=== PATIENT | female | born 1945 | race Caucasian/White ===

== ENCOUNTER 2018-11-27 09:30 | Outpatient (RCR) | payer MEDICARE, OTHER, SELFPAY ==
[2018-11-06 11:34] VITALS: BP 129/70; PULSE 97; RESP 18; TEMP 37.1; BMI 30.8
--- NOTE | 2018-11-06 13:18 | PCM.WC.HP ---
(1) Non-healing surgical wound Status: Chronic Current Visit: Yes Code(s): T81.89XA - Other complications of procedures, not elsewhere classified, initial encounter (2) Skin cancer of forehead Status: Chronic Current Visit: Yes Code(s): C44.309 - Unspecified malignant neoplasm of skin of other parts of face (3) Type 2 diabetes mellitus Status: Chronic Current Visit: Yes Code(s): E11.9 - Type 2 diabetes mellitus without complications History of Present Illness Chief Complaint: Nonhealing surgical wound. History of Wound: Ms. Zarate is a 72-year-old who presented to the wound center due to nonhealing postsurgical wound. On 02 October 2018, she had surgery to remove skin cancer on her left forehead. However, she is not achieved wound healing since surgery. Initially been managed by her property damage claims adjustor, she was referred here for continued care. She denies any concerns. Denies drainage from the site. Feels well otherwise. She states that her blood sugars are well controlled. Past Medical History Past Medical History: Chronic Problems Non-healing surgical wound (Chronic) Skin cancer of forehead (Chronic) Type 2 diabetes mellitus (Chronic) Smoking Status: Former smoker Review of Systems Constitutional: Denies: Anorexia, Chills, Night Sweats Eyes: Denies: Blurred vision HEENT: Reports: Difficulty Swallowing. Denies: Difficulty Hearing Cardiovascular: Denies: Chest Pain, Chest Tightness Respiratory: Denies: Cough, Hemoptysis Gastrointestinal: Reports: Nausea. Denies: Abdominal Pain, Hematemesis, Vomiting Skin: Denies: Jaundice - Physical Exam Vital Signs Temp Pulse Resp BP 98.7 F 97 18 129/70 H 11/06/18 11:34 11/06/18 11:34 11/06/18 11:34 11/06/18 11:34 General: Alert, Oriented x3, Cooperative, No apparent distress HEENT: Atraumatic, Normocephalic Oral: Moist Mucosa Neck: Supple Lungs: Normal air movement Cardiovascular: Regular rate, Regular Rhythm, Normal S1, Normal S2 Abdomen: Non Tender Extremities: No cyanosis Skin: Ulcer/ Wound Wound Measurements and Assessment WC - Nurse 1 - General Ulcer Measurement Start: 11/06/18 11:33 Freq: Status: Active Protocol: Activity Type Activity Date Activity User E-Sign Co-Sign Detail Recorded Client Recorded Date Recorded By Document 11/06/18 11:34 AN [id number] 11/06/18 11:57 AN 11/06/18 11:34 Wound Center Nurse 1 [Ulcer Assessment] #1 LEFT FOREHEAD -Combined with other wound No -Current Size (cm) - Length 1.8 -Current Size (cm) - Width 1.2 -Current Size (cm) - Depth 0.3 -Total Square Cm 2.16 -Date of Last Picture (Recall this 11/06/18 field) -Photo Taken Yes -Epithelialization None Present -Tunneling No -Undermining/Tunneling Yes -Undermining/Tunneling Starts (O' 10 clock) -Undermining/Tunneling Ends (O'clock) 2 -Maximum Distance (cm) 0.3 -Classification - Thickness Full Thickness without Exposed Support Structure -Exudate Amt Medium -Exudate Type Serosanguineous -Wound Margin Distinct, Outline Attached -Granulation Amt Small (1-33%) -Granulation Quality Red -Slough/Fibrin Yes -Necrosis Amt Large (67-100%) -Necrotic Tissue Type Eschar -Structure Exposed None/Limited to Skin Breakdown -Texture (Elizabeth-wound Skin Appearance) Assessed Callus -Moisture (Elizabeth-wound Skin Appearance Assessed ) -Color (Elizabeth-wound Skin Appearance) Assessed Erythema -Temperature (Elizabeth-wound Skin No Abnormality Appearance) (Pt Warm) -Tenderness on Palpation (Elizabeth-wound No Skin Appearance) -Ulcer Cleansing Rinsed/ Irrigated with Saline -Foul Odor after Cleansing No -Anesthetic Used 4% Lidocaine Solution WC - Nurse 2 - General Ulcer CM Notes Start: 11/06/18 11:33 Freq: Status: Active Protocol: Activity Type Activity Date Activity User E-Sign Co-Sign Detail Recorded Client Recorded Date Recorded By Document 11/06/18 12:19 MW [id number] 11/06/18 12:24 MW 11/06/18 12:19 Wound Center Nurse 2 [Procedure/Treatment] -Time 12:20 -Correct Patient Yes -Correct Side, Site, Position Yes -Correct Procedure Yes -Procedure Performed Yes -Type of Procedure Debridement -Clinical Debridement Subcutaneous -Post Debridement Size (cm) - Length 2.2 -Post Debridement Size (cm) - Width 1.5 -Post Debridement Size (cm) - Depth 0.4 -Total Square Cm 3.30 -Wound/Ulcer Outcome Not Healed -Ulcer Cleansing Rinsed/ Irrigated with Saline -Foul Odor after Cleansing No -Bioengineered Tissue No -Bleeding Controlled with Pressure -Offloading No -Treatment Response Procedure Tolerated Well [See Physician Procedure note for Specifics] Pain Scale: 0-10 Numeric [Pain] -Is Patient Pain Free? Yes Musculoskeletal: No Muscle Wasting Neurological: Cranial nerves II-XII grossly intact Psych/Mental Status: Normal Affect Debridement Note Post-Debridement Measurements/Treatment WC - Nurse 2 - General Ulcer CM Notes Start: 11/06/18 11:33 Freq: Status: Active Protocol: Activity Type Activity Date Activity User E-Sign Co-Sign Detail Recorded Client Recorded Date Recorded By Document 11/06/18 12:19 MW [id number] 11/06/18 12:24 MW 11/06/18 12:19 Wound Center Nurse 2 #1 LEFT FOREHEAD -Time 12:20 -Correct Patient Yes -Correct Side, Site, Position Yes -Correct Procedure Yes -Procedure Performed Yes -Type of Procedure Debridement -Clinical Debridement Subcutaneous -Post Debridement Size (cm) - Length 2.2 -Post Debridement Size (cm) - Width 1.5 -Post Debridement Size (cm) - Depth 0.4 -Total Square Cm 3.30 -Wound/Ulcer Outcome Not Healed -Ulcer Cleansing Rinsed/ Irrigated with Saline -Foul Odor after Cleansing No -Bioengineered Tissue No -Bleeding Controlled with Pressure -Offloading No -Treatment Response Procedure Tolerated Well Pain Scale: 0-10 Numeric Is Patient Pain Free? Yes Wound debrided: Left forehead Wound Grade/Stage: Stage III Type of Debridement: Excisional debridement Anesthesia Used: 4% Lidocaine Solution Depth: Down to and including healthy tissue, in the subcutaneous layer Percentage of wound debrided: 100 Instrument Used: 3mm curette Tissue Removed: Slough and devitalized tissue Severity: Fat Layer Exposed Amount of bleeding with debridement: Mild Bleeding Controlled with: Pressure Patient tolerated procedure well Assessment/Plan Active Problems Non-healing surgical wound (Chronic) Skin cancer of forehead (Chronic) Type 2 diabetes mellitus (Chronic) Assessment: Same as above. Plan: Debridement done as documented above. Procedure was well-tolerated. I believe patient might require flap closure. Some areas with exposed bone without any tissue. Referred to plastic surgery. Aquacel extra with Adaptic over top. Change daily. Optimal blood sugar control. Increased protein intake. We will request records from prior physician. Her questions were answered and she was asked to call with any further questions or concerns. Follow-up in 1 week. This note was generated with [employer] dictation software. It may contain incorrect words, spelling, and punctuation that were not noted in checking the note before signing.
--- NOTE | 2018-11-06 13:22 | HP.PCM_ITS ---
(1) Non-healing surgical wound Status: Chronic Current Visit: Yes Code(s): T81.89XA - Other complications of procedures, not elsewhere classified, initial encounter (2) Skin cancer of forehead Status: Chronic Current Visit: Yes Code(s): C44.309 - Unspecified malignant neoplasm of skin of other parts of face (3) Type 2 diabetes mellitus Status: Chronic Current Visit: Yes Code(s): E11.9 - Type 2 diabetes mellitus without complications History of Present Illness Chief Complaint: Nonhealing surgical wound. History of Wound: Ms. Zarate is a 72-year-old who presented to the wound center due to nonhealing postsurgical wound. On 02 October 2018, she had surgery to remove skin cancer on her left forehead. However, she is not achieved wound healing since surgery. Initially been managed by her fire warden, she was referred here for continued care. She denies any concerns. Denies drainage from the site. Feels well otherwise. She states that her blood sugars are well controlled. Past Medical History Past Medical History: Chronic Problems Non-healing surgical wound (Chronic) Skin cancer of forehead (Chronic) Type 2 diabetes mellitus (Chronic) Smoking Status: Former smoker Review of Systems Constitutional: Denies: Anorexia, Chills, Night Sweats Eyes: Denies: Blurred vision HEENT: Reports: Difficulty Swallowing. Denies: Difficulty Hearing Cardiovascular: Denies: Chest Pain, Chest Tightness Respiratory: Denies: Cough, Hemoptysis Gastrointestinal: Reports: Nausea. Denies: Abdominal Pain, Hematemesis, Vomiting Skin: Denies: Jaundice - Physical Exam Vital Signs Temp Pulse Resp BP 98.7 F 97 18 129/70 H 11/06/18 11:34 11/06/18 11:34 11/06/18 11:34 11/06/18 11:34 General: Alert, Oriented x3, Cooperative, No apparent distress HEENT: Atraumatic, Normocephalic Oral: Moist Mucosa Neck: Supple Lungs: Normal air movement Cardiovascular: Regular rate, Regular Rhythm, Normal S1, Normal S2 Abdomen: Non Tender Extremities: No cyanosis Skin: Ulcer/ Wound Wound Measurements and Assessment WC - Nurse 1 - General Ulcer Measurement Start: 11/06/18 11:33 Freq: Status: Active Protocol: Activity Type Activity Date Activity User E-Sign Co-Sign Detail Recorded Client Recorded Date Recorded By Document 11/06/18 11:34 AN [id number] 11/06/18 11:57 AN 11/06/18 11:34 Wound Center Nurse 1 [Ulcer Assessment] #1 LEFT FOREHEAD -Combined with other wound No -Current Size (cm) - Length 1.8 -Current Size (cm) - Width 1.2 -Current Size (cm) - Depth 0.3 -Total Square Cm 2.16 -Date of Last Picture (Recall this 11/06/18 field) -Photo Taken Yes -Epithelialization None Present -Tunneling No -Undermining/Tunneling Yes -Undermining/Tunneling Starts (O' 10 clock) -Undermining/Tunneling Ends (O'clock) 2 -Maximum Distance (cm) 0.3 -Classification - Thickness Full Thickness without Exposed Support Structure -Exudate Amt Medium -Exudate Type Serosanguineous -Wound Margin Distinct, Outline Attached -Granulation Amt Small (1-33%) -Granulation Quality Red -Slough/Fibrin Yes -Necrosis Amt Large (67-100%) -Necrotic Tissue Type Eschar -Structure Exposed None/Limited to Skin Breakdown -Texture (Elizabeth-wound Skin Appearance) Assessed Callus -Moisture (Elizabeth-wound Skin Appearance Assessed ) -Color (Elizabeth-wound Skin Appearance) Assessed Erythema -Temperature (Elizabeth-wound Skin No Abnormality Appearance) (Pt Warm) -Tenderness on Palpation (Elizabeth-wound No Skin Appearance) -Ulcer Cleansing Rinsed/ Irrigated with Saline -Foul Odor after Cleansing No -Anesthetic Used 4% Lidocaine Solution WC - Nurse 2 - General Ulcer CM Notes Start: 11/06/18 11:33 Freq: Status: Active Protocol: Activity Type Activity Date Activity User E-Sign Co-Sign Detail Recorded Client Recorded Date Recorded By Document 11/06/18 12:19 MW [id number] 11/06/18 12:24 MW 11/06/18 12:19 Wound Center Nurse 2 [Procedure/Treatment] -Time 12:20 -Correct Patient Yes -Correct Side, Site, Position Yes -Correct Procedure Yes -Procedure Performed Yes -Type of Procedure Debridement -Clinical Debridement Subcutaneous -Post Debridement Size (cm) - Length 2.2 -Post Debridement Size (cm) - Width 1.5 -Post Debridement Size (cm) - Depth 0.4 -Total Square Cm 3.30 -Wound/Ulcer Outcome Not Healed -Ulcer Cleansing Rinsed/ Irrigated with Saline -Foul Odor after Cleansing No -Bioengineered Tissue No -Bleeding Controlled with Pressure -Offloading No -Treatment Response Procedure Tolerated Well [See Physician Procedure note for Specifics] Pain Scale: 0-10 Numeric [Pain] -Is Patient Pain Free? Yes Musculoskeletal: No Muscle Wasting Neurological: Cranial nerves II-XII grossly intact Psych/Mental Status: Normal Affect Debridement Note Post-Debridement Measurements/Treatment WC - Nurse 2 - General Ulcer CM Notes Start: 11/06/18 11:33 Freq: Status: Active Protocol: Activity Type Activity Date Activity User E-Sign Co-Sign Detail Recorded Client Recorded Date Recorded By Document 11/06/18 12:19 MW [id number] 11/06/18 12:24 MW 11/06/18 12:19 Wound Center Nurse 2 #1 LEFT FOREHEAD -Time 12:20 -Correct Patient Yes -Correct Side, Site, Position Yes -Correct Procedure Yes -Procedure Performed Yes -Type of Procedure Debridement -Clinical Debridement Subcutaneous -Post Debridement Size (cm) - Length 2.2 -Post Debridement Size (cm) - Width 1.5 -Post Debridement Size (cm) - Depth 0.4 -Total Square Cm 3.30 -Wound/Ulcer Outcome Not Healed -Ulcer Cleansing Rinsed/ Irrigated with Saline -Foul Odor after Cleansing No -Bioengineered Tissue No -Bleeding Controlled with Pressure -Offloading No -Treatment Response Procedure Tolerated Well Pain Scale: 0-10 Numeric Is Patient Pain Free? Yes Wound debrided: Left forehead Wound Grade/Stage: Stage III Type of Debridement: Excisional debridement Anesthesia Used: 4% Lidocaine Solution Depth: Down to and including healthy tissue, in the subcutaneous layer Percentage of wound debrided: 100 Instrument Used: 3mm curette Tissue Removed: Slough and devitalized tissue Severity: Fat Layer Exposed Amount of bleeding with debridement: Mild Bleeding Controlled with: Pressure Patient tolerated procedure well Assessment/Plan Active Problems Non-healing surgical wound (Chronic) Skin cancer of forehead (Chronic) Type 2 diabetes mellitus (Chronic) Assessment: Same as above. Plan: Debridement done as documented above. Procedure was well-tolerated. I believe patient might require flap closure. Some areas with exposed bone without any tissue. Referred to plastic surgery. Aquacel extra with Adaptic over top. Change daily. Optimal blood sugar control. Increased protein intake. We will request records from prior physician. Her questions were answered and she was asked to call with any further questions or concerns. Follow-up in 1 week. This note was generated with [employer] dictation software. It may contain incorrect words, spelling, and punctuation that were not noted in checking the note before signing.
[2018-11-11 12:16] VITALS: BP 123/62; PULSE 100; RESP 18; TEMP 36.2; BMI 30.8
--- NOTE | 2018-11-11 20:54 | PCM.WC.HP ---
History of Present Illness Date of Service: 11/11/18 - WOUND CENTER CONSULT REFERRING PHYSICIAN: Dr. Ramos. LAST TRIMMER: Dr. Lopez. Chief Complaint: Nonhealing basal cell carcinoma ulcer left frontal scalp with exposed bone. History of Wound: 72-year-old woman with a history of diabetes mellitus presented to the Wound Center last week with a nonhealing basal cell carcinoma ulcer left frontal scalp with exposed bone. She had a lesion on her left frontal scalp that was biopsied on 08/28/18. Pathology showed a basal cell carcinoma, ulcerated nodular with infiltrating features. She then underwent definitive excision of this basal cell carcinoma left frontal scalp using Moh's micrographic surgery on 10/02/18. The wound was allowed to heal with secondary intention. In the meantime, the healing wound extended down to the bone. A wound culture was done at her visit last week 11/06/18. It showed Coag negative Staph and Propionibacterium acnes. She was placed on Doxycycline. Will add Flagyl. Silver dressing changes were started. Today she denies fever. Her appetite is ok. 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 Hypertension. Hyperlipidemia. Diabetes mellitus. Depression. Dementia. Basal cell carcinoma left frontal scalp. Former smoker. Surgical History: - - rhinoplasty 1955. excision basal cell carcinoma left frontal scalp using Moh's micrographic surgery - 10/19 Home Medications: Ambulatory Orders Medication Instructions Recorded Metronidazole [Flagyl] 500 mg PO TID 10 Days #30 tab 11/14/18 - Family History Maternal - - negative for skin cancer. Smoking Status: Former smoker Alcohol: None Drugs: None Review of Systems Constitutional: Reports: Fatigue. Denies: Fever, Weight Change Eyes: Denies: Cataracts, Pain HEENT: Denies: Nasal Congestion, Sore Throat Cardiovascular: Denies: Chest Pain Respiratory: Reports: - - patient is a former smoker.. Denies: Cough, Shortness of Breath Gastrointestinal: Reports: Nausea. Denies: Constipation, Diarrhea, Vomiting Genitourinary: Denies: Frequency, Hematuria Musculoskeletal: Denies: Back Pain, Hand Pain, Neck Pain Skin: Reports: Wounds - nonhealing basal cell carcinoma ulcer left frontal scalp with exposed bone Neurological: Reports: - - history of stroke.. Denies: Headaches Psychiatric: Reports: Depression. Denies: Anxiety Endocrine: Reports: - - has diabetes mellitus.. Denies: Heat/ Cold Intolerance Hematologic/ Lymphatic: Denies: Easy Bruising, Hx of blood clot - Physical Exam General: Alert, Oriented x3. HEENT: PERRL. EOMI. On the left frontal scalp is a nonhealing basal cell carcinoma ulcer with exposed bone. Oral: Moist Mucosa. Neck: Supple, nontender. No cervical adenopathy. Lungs: Clear to auscultation. Cardiovascular: Regular rate, Regular Rhythm. Abdomen: Soft, non distended. Extremities: No clubbing, cyanosis. Neurological: Cranial nerves II-XII grossly intact. History of stroke. Psych/Mental Status: Normal Affect. Vital Signs Temp Pulse Resp BP 97.1 F L 100 18 123/62 H 11/11/18 12:16 11/11/18 12:16 11/11/18 12:16 11/11/18 12:16 Wound Measurements and Assessment WC - Nurse 1 - General Ulcer Measurement Start: 11/06/18 11:33 Freq: Status: Active Protocol: Activity Type Activity Date Activity User E-Sign Co-Sign Detail Recorded Client Recorded Date Recorded By Document 11/11/18 12:16 [id number] 11/11/18 12:18 RB 11/11/18 12:16 Wound Center Nurse 1 [Ulcer Assessment] #1 LEFT FOREHEAD -Combined with other wound No -Current Size (cm) - Length 1.9 -Current Size (cm) - Width 1.2 -Current Size (cm) - Depth 0.2 -Total Square Cm 2.28 -Tunneling No -Undermining/Tunneling No -Circular Undermining No -Exudate Amt Small -Exudate Type Serosanguineous -Wound Margin Thickened & Rolled Under -Granulation Amt Large (67-100%) -Granulation Quality [place] -Slough/Fibrin Yes -Necrosis Amt Small (1-33%) -Necrotic Tissue Type Adherent Slough -Structure Exposed N/A -Texture (Elizabeth-wound Skin Appearance) Assessed -Moisture (Elizabeth-wound Skin Appearance Assessed ) -Color (Elizabeth-wound Skin Appearance) Assessed -Temperature (Elizabeth-wound Skin No Abnormality Appearance) (Pt Warm) -Tenderness on Palpation (Elizabeth-wound No Skin Appearance) -Ulcer Cleansing Rinsed/ Irrigated with Saline -Foul Odor after Cleansing No -Anesthetic Used 5% Lidocaine Gel WC - Nurse 2 - General Ulcer CM Notes Start: 11/06/18 11:33 Freq: Status: Active Protocol: Activity Type Activity Date Activity User E-Sign Co-Sign Detail Recorded Client Recorded Date Recorded By Document 11/11/18 12:41 [id number] 11/11/18 12:42 11/11/18 12:41 Wound Center Nurse 2 [Procedure/Treatment] -Time 12:42 -Correct Patient Yes -Correct Side, Site, Position Yes -Correct Procedure Yes -Procedure Performed Yes -Type of Procedure Debridement -Clinical Debridement Subcutaneous -Post Debridement Size (cm) - Length 2.0 -Post Debridement Size (cm) - Width 1.2 -Post Debridement Size (cm) - Depth 0.2 -Total Square Cm 2.40 -Wound/Ulcer Outcome Not Healed -Ulcer Cleansing Rinsed/ Irrigated with Saline -Foul Odor after Cleansing No -Bioengineered Tissue No -Bleeding Controlled with Pressure -Offloading No -Treatment Response Procedure Tolerated Well [See Physician Procedure note for Specifics] Pain Scale: 0-10 Numeric [Pain] -Is Patient Pain Free? Yes Debridement Note Post-Debridement Measurements/Treatment - Nurse 2 - General Ulcer CM Notes Start: 11/06/18 11:33 Freq: Status: Active Protocol: Activity Type Activity Date Activity User E-Sign Co-Sign Detail Recorded Client Recorded Date Recorded By Document 11/06/18 12:19 [id number] 11/06/18 12:24 Document 11/11/18 12:41 [id number] 11/11/18 12:42 11/06/18 11/11/18 12:19 12:41 Wound Center Nurse 2 #1 LEFT FOREHEAD -Time 12:20 12:42 -Correct Patient Yes Yes -Correct Side, Site, Position Yes Yes -Correct Procedure Yes Yes -Procedure Performed Yes Yes -Type of Procedure Debridement Debridement -Clinical Debridement Subcutaneous Subcutaneous -Post Debridement Size (cm) - Length 2.2 2.0 -Post Debridement Size (cm) - Width 1.5 1.2 -Post Debridement Size (cm) - Depth 0.4 0.2 -Total Square Cm 3.30 2.40 -Wound/Ulcer Outcome Not Healed Not Healed -Ulcer Cleansing Rinsed/ Rinsed/ Irrigated with Irrigated with Saline Saline -Foul Odor after Cleansing No No -Bioengineered Tissue No No -Bleeding Controlled with Pressure Pressure -Offloading No No -Treatment Response Procedure Procedure Tolerated Well Tolerated Well Pain Scale: 0-10 Numeric Is Patient Pain Free? Yes Yes Wound debrided: #1 Left frontal scalp. Laterality: Left Wound Grade/Stage: 4. Type of Debridement: Excisional debridement Anesthesia Used: 4% Lidocaine Solution Depth: Down to and including healthy tissue, in the subcutaneous layer, to bone - bone is exposed but not debrided. Percentage of wound debrided: 100 Instrument Used: 3mm curette Tissue Removed: subcutaneous tissue. Severity: Fat Layer Exposed - bone is exposed but not debrided. Amount of bleeding with debridement: Mild Bleeding Controlled with: Pressure Patient tolerated procedure well Assessment/Plan Assessment: 1. Nonhealing basal cell carcinoma ulcer left frontal scalp with exposed bone. 2. Diabetes mellitus. 3. Former smoker. Plan: Reviewed old records from recent excision. Pathology showed a basal cell carcinoma, ulcerated nodular with infiltrating features. It was excised on 10/02/18 using Moh's micrographic surgery. Continue Silver dressing changes to the scalp ulcer. May moisten the Silver. Continue Doxycycline. Has Coag negative Staph. Will start Flagyl for Propionibacterium acnes. Depending on healing, may need a CT of the skull to look for osteomyelitis. Would also need operative bony debridement and send bone tissue to Pathology for analysis to rule out osteomyelitis. If osteomyelitis is present, then IV antibiotics would be necessary through a PICC line. Also she would be evaluated for HBO treatments for the osteomyelitis. Additional bony debridements would be necessary until the Pathology is negative for osteomyelitis before attempts with wound closure are done. If bone is negative for osteomyelitis and the bone granulates with local wound care with Silver dressing changes, then can proceed with wound closure with skin grafting. If bone is negative for osteomyelitis and the bone does not granulate with local wound care with Silver dressing changes, then would need complex wound closure with multiple scalp pinwheel flaps. The donor site of the flaps may need to be skin grafted. Prior to wound closure with elective skin grafts and/or flaps, would check a HgbA1c and it would need to be below 8. Encourage nutritional supplementation with protein to help the healing process. Will check a Prealbumin. Patient was informed of the risks and complications of the procedure including alternatives to surgery. These were discussed with her personally. She voices understanding and wishes to proceed with complex wound care and antibiotics at this time. She hopes the ulcer heals without surgery, but she understands that surgery may be a necessity. If osteomyelitis is present, and we cannot get the ulcer to heal with IV antibiotics, wound care, surgical flaps, and HBO therapy, then she would need to be evaluated at a tertiary center. At that point, more of the bone would need to be removed by Neurosurgery followed by complex soft tissue flap reconstruction which may necessitate the use of the microscope. Patient is aware of that possibility. Followup with Dr. Ramos one week. Followup to see me in 3 weeks to evaluate the healing of the ulcer and to further discuss surgical debridement of the bone. This note was generated with [employer] software. It may contain incorrect words, spelling, and punctuation that were not noted in checking the note before signing.
[2018-11-20 10:11] VITALS: BP 126/63; PULSE 96; RESP 16; TEMP 35.3; BMI 30.8
--- NOTE | 2018-11-20 12:00 | PCM.WC.PN ---
(1) Non-healing surgical wound Status: Chronic Current Visit: Yes Code(s): T81.89XA - Other complications of procedures, not elsewhere classified, initial encounter (2) Skin cancer of forehead Status: Chronic Current Visit: Yes Code(s): C44.309 - Unspecified malignant neoplasm of skin of other parts of face (3) Type 2 diabetes mellitus Status: Chronic Current Visit: Yes Code(s): E11.9 - Type 2 diabetes mellitus without complications Type of Wound Chief Complaint: Nonhealing basal cell carcinoma ulcer left frontal scalp with exposed bone. History of Wound: 72-year-old woman with a history of diabetes mellitus presented to [facility] last week with a nonhealing basal cell carcinoma ulcer left frontal scalp with exposed bone. She had a lesion on her left frontal scalp that was biopsied on 08/28/18. Pathology showed a basal cell carcinoma, ulcerated nodular with infiltrating features. She then underwent definitive excision of this basal cell carcinoma left frontal scalp using Moh's micrographic surgery on 10/02/18. The wound was allowed to heal with secondary intention. In the meantime, the healing wound extended down to the bone. A wound culture was done at her visit last week 11/06/18. It showed Coag negative Staph and Propionibacterium acnes. She was placed on Doxycycline. Will add Flagyl. Silver dressing changes were started. Today she denies fever. Her appetite is ok. Progress of Wound: Improving. No new concerns at this time. - Physical Exam Vital Signs Temp Pulse Resp BP 95.5 F L 96 16 126/63 H 11/20/18 10:11 11/20/18 10:11 11/20/18 10:11 11/20/18 10:11 General: Alert, Oriented x3, Cooperative, No apparent distress HEENT: Atraumatic, Normocephalic Oral: Moist Mucosa Neck: Supple Lungs: Normal air movement Abdomen: Non Tender Extremities: No cyanosis Skin: Ulcer/ Wound Wound Measurements and Assessment WC - Nurse 1 - General Ulcer Measurement Start: 11/06/18 11:33 Freq: Status: Active Protocol: Activity Type Activity Date Activity User E-Sign Co-Sign Detail Recorded Client Recorded Date Recorded By Document 11/20/18 10:11 AN [id number] 11/20/18 10:16 AN 11/20/18 10:11 Wound Center Nurse 1 [Ulcer Assessment] #1 LEFT FOREHEAD -Current Size (cm) - Length 0.9 -Current Size (cm) - Width 1.5 -Current Size (cm) - Depth 0.3 -Total Square Cm 1.35 -Photo Taken No -Epithelialization None Present -Undermining/Tunneling Yes -Undermining/Tunneling Starts (O' 11 clock) -Undermining/Tunneling Ends (O'clock) 1 -Maximum Distance (cm) 0.4 -Classification - Thickness Full Thickness with Exposed Support Structure -Exudate Amt Small -Exudate Type Serous -Wound Margin Distinct, Outline Attached -Granulation Amt Small (1-33%) -Granulation Quality Pale -Slough/Fibrin Yes -Necrosis Amt Large (67-100%) -Necrotic Tissue Type Adherent Slough -Structure Exposed Bone -Texture (Elizabeth-wound Skin Appearance) Assessed -Moisture (Elizabeth-wound Skin Appearance Assessed ) -Color (Elizabeth-wound Skin Appearance) Assessed Erythema -Temperature (Elizabeth-wound Skin No Abnormality Appearance) (Pt Warm) -Tenderness on Palpation (Elizabeth-wound No Skin Appearance) -Ulcer Cleansing Rinsed/ Irrigated with Saline -Foul Odor after Cleansing No -Anesthetic Used 5% Lidocaine Gel WC - Nurse 2 - General Ulcer CM Notes Start: 11/06/18 11:33 Freq: Status: Active Protocol: Activity Type Activity Date Activity User E-Sign Co-Sign Detail Recorded Client Recorded Date Recorded By Document 11/20/18 10:37 MW [id number] 11/20/18 10:42 MW 11/20/18 10:37 Wound Center Nurse 2 [Procedure/Treatment] -Time 10:38 -Correct Patient Yes -Correct Side, Site, Position Yes -Correct Procedure Yes -Procedure Performed Yes -Type of Procedure Debridement -Clinical Debridement Subcutaneous -Post Debridement Size (cm) - Length 1.5 -Post Debridement Size (cm) - Width 0.9 -Post Debridement Size (cm) - Depth 0.2 -Total Square Cm 1.35 -Wound/Ulcer Outcome Not Healed -Ulcer Cleansing Rinsed/ Irrigated with Saline -Foul Odor after Cleansing No -Bioengineered Tissue No -Bleeding Controlled with Pressure -Offloading No -Treatment Response Procedure Tolerated Well [See Physician Procedure note for Specifics] Pain Scale: 0-10 Numeric [Pain] -Is Patient Pain Free? Yes Musculoskeletal: No Muscle Wasting Neurological: Cranial nerves II-XII grossly intact Psych/Mental Status: Normal Affect Debridement Note Post-Debridement Measurements/Treatment WC - Nurse 2 - General Ulcer CM Notes Start: 11/06/18 11:33 Freq: Status: Active Protocol: Activity Type Activity Date Activity User E-Sign Co-Sign Detail Recorded Client Recorded Date Recorded By Document 11/06/18 12:19 MW [id number] 11/06/18 12:24 MW Document 11/11/18 12:41 JF [id number] 11/11/18 12:42 JF Document 11/20/18 10:37 MW [id number] 11/20/18 10:42 MW 11/06/18 11/11/18 11/20/18 12:19 12:41 10:37 Wound Center Nurse 2 #1 LEFT FOREHEAD -Time 12:20 12:42 10:38 -Correct Patient Yes Yes Yes -Correct Side, Site, Position Yes Yes Yes -Correct Procedure Yes Yes Yes -Procedure Performed Yes Yes Yes -Type of Procedure Debridement Debridement Debridement -Clinical Debridement Subcutaneous Subcutaneous Subcutaneous -Post Debridement Size (cm) - Length 2.2 2.0 1.5 -Post Debridement Size (cm) - Width 1.5 1.2 0.9 -Post Debridement Size (cm) - Depth 0.4 0.2 0.2 -Total Square Cm 3.30 2.40 1.35 -Wound/Ulcer Outcome Not Healed Not Healed Not Healed -Ulcer Cleansing Rinsed/ Rinsed/ Rinsed/ Irrigated with Irrigated with Irrigated with Saline Saline Saline -Foul Odor after Cleansing No No No -Bioengineered Tissue No No No -Bleeding Controlled with Pressure Pressure Pressure -Offloading No No No -Treatment Response Procedure Procedure Procedure Tolerated Well Tolerated Well Tolerated Well Pain Scale: 0-10 Numeric Is Patient Pain Free? Yes Yes Yes Wound debrided: Left forehead/scalp Wound Grade/Stage: Stage III Type of Debridement: Excisional debridement Anesthesia Used: 5% Lidocaine Gel Depth: Down to and including healthy tissue, in the subcutaneous layer Percentage of wound debrided: 100 Instrument Used: 3mm curette Tissue Removed: Slough and devitalized tissue Severity: Fat Layer Exposed Amount of bleeding with debridement: Mild Bleeding Controlled with: Pressure Patient tolerated procedure well Assessment/Plan Active Problems Non-healing surgical wound (Chronic) Skin cancer of forehead (Chronic) Type 2 diabetes mellitus (Chronic) Assessment: 1. Nonhealing basal cell carcinoma ulcer left frontal scalp with exposed bone. 2. Diabetes mellitus. 3. Former smoker. Plan: Debridement done as documented above. Procedure was well-tolerated. Wound is actually improving. Exposed bone however still present. Appreciate consult/imput from Dr. Lopez. Continue Aquacel silver with Adaptic over top. Change daily. However, I believe she will benefit from advanced wound care products /epi-fix due to the chronicity of her wound/ delayed healing. Continue increased protein intake and optimal blood sugar control. Complete course of antibiotics. Follow-up in 1 week. Advised to call with any questions or concerns. This note was generated with [employer] dictation software. It may contain incorrect words, spelling, and punctuation that were not noted in checking the note before signing.
--- NOTE | 2018-11-20 12:06 | PN.PCM_ITS ---
(1) Non-healing surgical wound Status: Chronic Current Visit: Yes Code(s): T81.89XA - Other complications of procedures, not elsewhere classified, initial encounter (2) Skin cancer of forehead Status: Chronic Current Visit: Yes Code(s): C44.309 - Unspecified malignant neoplasm of skin of other parts of face (3) Type 2 diabetes mellitus Status: Chronic Current Visit: Yes Code(s): E11.9 - Type 2 diabetes mellitus without complications Type of Wound Chief Complaint: Nonhealing basal cell carcinoma ulcer left frontal scalp with exposed bone. History of Wound: 72-year-old woman with a history of diabetes mellitus presented to the [facility] Center last week with a nonhealing basal cell carcinoma ulcer left frontal scalp with exposed bone. She had a lesion on her left frontal scalp that was biopsied on 08/28/18. Pathology showed a basal cell carcinoma, ulcerated nodular with infiltrating features. She then underwent definitive excision of this basal cell carcinoma left frontal scalp using Moh's micrographic surgery on 10/02/18. The wound was allowed to heal with secondary intention. In the meantime, the healing wound extended down to the bone. A wound culture was done at her visit last week 11/06/18. It showed Coag negative Staph and Propionibacterium acnes. She was placed on Doxycycline. Will add Flagyl. Silver dressing changes were started. Today she denies fever. Her appetite is ok. Progress of Wound: Improving. No new concerns at this time. - Physical Exam Vital Signs Temp Pulse Resp BP 95.5 F L 96 16 126/63 H 11/20/18 10:11 11/20/18 10:11 11/20/18 10:11 11/20/18 10:11 General: Alert, Oriented x3, Cooperative, No apparent distress HEENT: Atraumatic, Normocephalic Oral: Moist Mucosa Neck: Supple Lungs: Normal air movement Abdomen: Non Tender Extremities: No cyanosis Skin: Ulcer/ Wound Wound Measurements and Assessment WC - Nurse 1 - General Ulcer Measurement Start: 11/06/18 11:33 Freq: Status: Active Protocol: Activity Type Activity Date Activity User E-Sign Co-Sign Detail Recorded Client Recorded Date Recorded By Document 11/20/18 10:11 AN [id number] 11/20/18 10:16 AN 11/20/18 10:11 Wound Center Nurse 1 [Ulcer Assessment] #1 LEFT FOREHEAD -Current Size (cm) - Length 0.9 -Current Size (cm) - Width 1.5 -Current Size (cm) - Depth 0.3 -Total Square Cm 1.35 -Photo Taken No -Epithelialization None Present -Undermining/Tunneling Yes -Undermining/Tunneling Starts (O' 11 clock) -Undermining/Tunneling Ends (O'clock) 1 -Maximum Distance (cm) 0.4 -Classification - Thickness Full Thickness with Exposed Support Structure -Exudate Amt Small -Exudate Type Serous -Wound Margin Distinct, Outline Attached -Granulation Amt Small (1-33%) -Granulation Quality Pale -Slough/Fibrin Yes -Necrosis Amt Large (67-100%) -Necrotic Tissue Type Adherent Slough -Structure Exposed Bone -Texture (Elizabeth-wound Skin Appearance) Assessed -Moisture (Elizabeth-wound Skin Appearance Assessed ) -Color (Elizabeth-wound Skin Appearance) Assessed Erythema -Temperature (Elizabeth-wound Skin No Abnormality Appearance) (Pt Warm) -Tenderness on Palpation (Elizabeth-wound No Skin Appearance) -Ulcer Cleansing Rinsed/ Irrigated with Saline -Foul Odor after Cleansing No -Anesthetic Used 5% Lidocaine Gel WC - Nurse 2 - General Ulcer CM Notes Start: 11/06/18 11:33 Freq: Status: Active Protocol: Activity Type Activity Date Activity User E-Sign Co-Sign Detail Recorded Client Recorded Date Recorded By Document 11/20/18 10:37 MW [id number] 11/20/18 10:42 MW 11/20/18 10:37 Wound Center Nurse 2 [Procedure/Treatment] -Time 10:38 -Correct Patient Yes -Correct Side, Site, Position Yes -Correct Procedure Yes -Procedure Performed Yes -Type of Procedure Debridement -Clinical Debridement Subcutaneous -Post Debridement Size (cm) - Length 1.5 -Post Debridement Size (cm) - Width 0.9 -Post Debridement Size (cm) - Depth 0.2 -Total Square Cm 1.35 -Wound/Ulcer Outcome Not Healed -Ulcer Cleansing Rinsed/ Irrigated with Saline -Foul Odor after Cleansing No -Bioengineered Tissue No -Bleeding Controlled with Pressure -Offloading No -Treatment Response Procedure Tolerated Well [See Physician Procedure note for Specifics] Pain Scale: 0-10 Numeric [Pain] -Is Patient Pain Free? Yes Musculoskeletal: No Muscle Wasting Neurological: Cranial nerves II-XII grossly intact Psych/Mental Status: Normal Affect Debridement Note Post-Debridement Measurements/Treatment WC - Nurse 2 - General Ulcer CM Notes Start: 11/06/18 11:33 Freq: Status: Active Protocol: Activity Type Activity Date Activity User E-Sign Co-Sign Detail Recorded Client Recorded Date Recorded By Document 11/06/18 12:19 MW [id number] 11/06/18 12:24 MW Document 11/11/18 12:41 JF [id number] 11/11/18 12:42 JF Document 11/20/18 10:37 MW [id number] 11/20/18 10:42 MW 11/06/18 11/11/18 11/20/18 12:19 12:41 10:37 Wound Center Nurse 2 #1 LEFT FOREHEAD -Time 12:20 12:42 10:38 -Correct Patient Yes Yes Yes -Correct Side, Site, Position Yes Yes Yes -Correct Procedure Yes Yes Yes -Procedure Performed Yes Yes Yes -Type of Procedure Debridement Debridement Debridement -Clinical Debridement Subcutaneous Subcutaneous Subcutaneous -Post Debridement Size (cm) - Length 2.2 2.0 1.5 -Post Debridement Size (cm) - Width 1.5 1.2 0.9 -Post Debridement Size (cm) - Depth 0.4 0.2 0.2 -Total Square Cm 3.30 2.40 1.35 -Wound/Ulcer Outcome Not Healed Not Healed Not Healed -Ulcer Cleansing Rinsed/ Rinsed/ Rinsed/ Irrigated with Irrigated with Irrigated with Saline Saline Saline -Foul Odor after Cleansing No No No -Bioengineered Tissue No No No -Bleeding Controlled with Pressure Pressure Pressure -Offloading No No No -Treatment Response Procedure Procedure Procedure Tolerated Well Tolerated Well Tolerated Well Pain Scale: 0-10 Numeric Is Patient Pain Free? Yes Yes Yes Wound debrided: Left forehead/scalp Wound Grade/Stage: Stage III Type of Debridement: Excisional debridement Anesthesia Used: 5% Lidocaine Gel Depth: Down to and including healthy tissue, in the subcutaneous layer Percentage of wound debrided: 100 Instrument Used: 3mm curette Tissue Removed: Slough and devitalized tissue Severity: Fat Layer Exposed Amount of bleeding with debridement: Mild Bleeding Controlled with: Pressure Patient tolerated procedure well Assessment/Plan Active Problems Non-healing surgical wound (Chronic) Skin cancer of forehead (Chronic) Type 2 diabetes mellitus (Chronic) Assessment: 1. Nonhealing basal cell carcinoma ulcer left frontal scalp with exposed bone. 2. Diabetes mellitus. 3. Former smoker. Plan: Debridement done as documented above. Procedure was well-tolerated. Wound is actually improving. Exposed bone however still present. Appreciate consult/imput from Dr. Lopez. Continue Aquacel silver with Adaptic over top. Change daily. However, I believe she will benefit from advanced wound care products /epi-fix due to the chronicity of her wound/ delayed healing. Continue increased protein intake and optimal blood sugar control. Complete course of antibiotics. Follow-up in 1 week. Advised to call with any questions or concerns. This note was generated with [employer] dictation software. It may contain incorrect words, spelling, and punctuation that were not noted in checking the note before signing.
--- NOTE | 2018-11-27 11:35 | PCM.WC.PN ---
(1) Non-healing surgical wound Status: Chronic Current Visit: Yes Code(s): T81.89XA - Other complications of procedures, not elsewhere classified, initial encounter (2) Skin cancer of forehead Status: Chronic Current Visit: Yes Code(s): C44.309 - Unspecified malignant neoplasm of skin of other parts of face (3) Type 2 diabetes mellitus Status: Chronic Current Visit: Yes Code(s): E11.9 - Type 2 diabetes mellitus without complications Type of Wound Chief Complaint: Nonhealing basal cell carcinoma ulcer left frontal scalp with exposed bone. History of Wound: 72-year-old woman with a history of diabetes mellitus presented to the [facility] Center last week with a nonhealing basal cell carcinoma ulcer left frontal scalp with exposed bone. She had a lesion on her left frontal scalp that was biopsied on 08/28/18. Pathology showed a basal cell carcinoma, ulcerated nodular with infiltrating features. She then underwent definitive excision of this basal cell carcinoma left frontal scalp using Moh's micrographic surgery on 10/02/18. The wound was allowed to heal with secondary intention. In the meantime, the healing wound extended down to the bone. A wound culture was done at her visit last week 11/06/18. It showed Coag negative Staph and Propionibacterium acnes. She was placed on Doxycycline. Will add Flagyl. Silver dressing changes were started. Today she denies fever. Her appetite is ok. Progress of Wound: Stable. No new concerns at this time. - Physical Exam Vital Signs Temp Pulse Resp BP 95.5 F L 96 16 126/63 H 11/20/18 10:11 11/20/18 10:11 11/20/18 10:11 11/20/18 10:11 General: Alert, Oriented x3, No apparent distress HEENT: Atraumatic, Normocephalic Oral: Moist Mucosa Neck: Supple Lungs: Normal air movement Extremities: No cyanosis Skin: Ulcer/ Wound Wound Measurements and Assessment WC - Nurse 1 - General Ulcer Measurement Start: 11/06/18 11:33 Freq: Status: Active Protocol: Activity Type Activity Date Activity User E-Sign Co-Sign Detail Recorded Client Recorded Date Recorded By Document 11/26/18 11:57 DV [id number] 11/27/18 09:36 DV 11/26/18 11:57 Wound Center Nurse 1 [Ulcer Assessment] #1 LEFT FOREHEAD -Combined with other wound No -Current Size (cm) - Length 1.3 -Current Size (cm) - Width 0.6 -Current Size (cm) - Depth 0.2 -Total Square Cm 0.78 -Photo Taken No -Epithelialization None Present -Tunneling No -Undermining/Tunneling No -Undermining/Tunneling Starts (O' 9 clock) -Undermining/Tunneling Ends (O'clock) 3 -Maximum Distance (cm) 0.5 -Circular Undermining No -Exudate Amt Small -Exudate Type Serous -Wound Margin Thickened -Granulation Amt None Present (0 %) -Granulation Quality N/A -Slough/Fibrin Yes -Necrosis Amt Large (67-100%) -Necrotic Tissue Type Adherent Slough -Texture (Elizabeth-wound Skin Appearance) Assessed Scarring -Moisture (Elizabeth-wound Skin Appearance No Abnormality ) Assessed -Color (Elizabeth-wound Skin Appearance) Assessed Erythema -Temperature (Elizabeth-wound Skin No Abnormality Appearance) (Pt Warm) -Tenderness on Palpation (Elizabeth-wound No Skin Appearance) -Ulcer Cleansing Rinsed/ Irrigated with Saline -Foul Odor after Cleansing No -Anesthetic Used 4% Lidocaine Solution WC - Nurse 2 - General Ulcer CM Notes Start: 11/06/18 11:33 Freq: Status: Active Protocol: Activity Type Activity Date Activity User E-Sign Co-Sign Detail Recorded Client Recorded Date Recorded By Document 11/27/18 09:43 MW [id number] 11/27/18 09:55 MW 11/27/18 09:43 Wound Center Nurse 2 [Procedure/Treatment] -Time 09:43 -Correct Patient Yes -Correct Side, Site, Position Yes -Correct Procedure Yes -Procedure Performed Yes -Type of Procedure Debridement -Clinical Debridement Subcutaneous -Post Debridement Size (cm) - Length 1.5 -Post Debridement Size (cm) - Width 0.7 -Post Debridement Size (cm) - Depth 0.3 -Total Square Cm 1.05 -Wound/Ulcer Outcome Not Healed -Ulcer Cleansing Rinsed/ Irrigated with Saline -Foul Odor after Cleansing No -Bioengineered Tissue No -Type of bioengineered Tissue EPIFIX -Expiration Date 05/01/23 -Product Lot Number [id number] -Percent Used 100 -Saline Lot Number [id number] -Bleeding Controlled with Pressure -Other UNDERMINING 9-3 , 0.6CM @1 -Offloading No -Treatment Response Procedure Tolerated Well [See Physician Procedure note for Specifics] Pain Scale: 0-10 Numeric [Pain] -Is Patient Pain Free? Yes Musculoskeletal: No Muscle Wasting Neurological: Cranial nerves II-XII grossly intact Psych/Mental Status: Normal Affect Debridement Note Post-Debridement Measurements/Treatment WC - Nurse 2 - General Ulcer CM Notes Start: 11/06/18 11:33 Freq: Status: Active Protocol: Activity Type Activity Date Activity User E-Sign Co-Sign Detail Recorded Client Recorded Date Recorded By Document 11/06/18 12:19 MW [id number] 11/06/18 12:24 MW Document 11/11/18 12:41 JF [id number] 11/11/18 12:42 JF Document 11/20/18 10:37 MW [id number] 11/20/18 10:42 MW Document 11/27/18 09:43 MW [id number] 11/27/18 09:55 MW 11/06/18 11/11/18 11/20/18 12:19 12:41 10:37 Wound Center Nurse 2 #1 LEFT FOREHEAD -Time 12:20 12:42 10:38 -Correct Patient Yes Yes Yes -Correct Side, Site, Position Yes Yes Yes -Correct Procedure Yes Yes Yes -Procedure Performed Yes Yes Yes -Type of Procedure Debridement Debridement Debridement -Clinical Debridement Subcutaneous Subcutaneous Subcutaneous -Post Debridement Size (cm) - Length 2.2 2.0 1.5 -Post Debridement Size (cm) - Width 1.5 1.2 0.9 -Post Debridement Size (cm) - Depth 0.4 0.2 0.2 -Total Square Cm 3.30 2.40 1.35 -Wound/Ulcer Outcome Not Healed Not Healed Not Healed -Ulcer Cleansing Rinsed/ Rinsed/ Rinsed/ Irrigated with Irrigated with Irrigated with Saline Saline Saline -Foul Odor after Cleansing No No No -Bioengineered Tissue No No No -Type of bioengineered Tissue -Expiration Date -Product Lot Number -Percent Used -Saline Lot Number -Bleeding Controlled with Pressure Pressure Pressure -Other -Offloading No No No -Treatment Response Procedure Procedure Procedure Tolerated Well Tolerated Well Tolerated Well Pain Scale: 0-10 Numeric Is Patient Pain Free? Yes Yes Yes 11/27/18 09:43 Wound Center Nurse 2 #1 LEFT FOREHEAD -Time 09:43 -Correct Patient Yes -Correct Side, Site, Position Yes -Correct Procedure Yes -Procedure Performed Yes -Type of Procedure Debridement -Clinical Debridement Subcutaneous -Post Debridement Size (cm) - Length 1.5 -Post Debridement Size (cm) - Width 0.7 -Post Debridement Size (cm) - Depth 0.3 -Total Square Cm 1.05 -Wound/Ulcer Outcome Not Healed -Ulcer Cleansing Rinsed/ Irrigated with Saline -Foul Odor after Cleansing No -Bioengineered Tissue No -Type of bioengineered Tissue EPIFIX -Expiration Date 05/01/23 -Product Lot Number [id number] -Percent Used 100 -Saline Lot Number [id number] -Bleeding Controlled with Pressure -Other UNDERMINING 9-3 , 0.6CM @1 -Offloading No -Treatment Response Procedure Tolerated Well Pain Scale: 0-10 Numeric Is Patient Pain Free? Yes Wound debrided: Left Forehead Wound Grade/Stage: Stage III Type of Debridement: Excisional debridement Anesthesia Used: 4% Lidocaine Solution Depth: Down to and including healthy tissue, in the subcutaneous layer Percentage of wound debrided: 100 Instrument Used: 3mm curette Tissue Removed: Slough and devitalized tissue Severity: Fat Layer Exposed - Exposed bones Amount of bleeding with debridement: Mild Bleeding Controlled with: Pressure Patient tolerated procedure well Assessment/Plan Active Problems Non-healing surgical wound (Chronic) Skin cancer of forehead (Chronic) Type 2 diabetes mellitus (Chronic) Assessment: 1. Nonhealing basal cell carcinoma ulcer left frontal scalp with exposed bone. 2. Diabetes mellitus. 3. Former smoker. Plan: Debridement done as documented above. Procedure was well-tolerated. Wound is very slowly improving however, exposed bone still present increasing the risk for osteomyelitis. Using an advanced wound care product is medically necessary to improve her healing chances and time to healing to reduce the likelyhood of Osteomyelitis. Wound has been present for about 2 months and she had tried some traditional wound care products with failure to progress prior to starting aquacel silver about 3 weeks ago. Appreciate consult/imput from Dr. Lopez. Initial application of Epifix done today using 100% of product. Moistened with saline and adaptic over top. Leave in place for 1 week. Continue increased protein intake and optimal blood sugar control. Follow-up in 1 week. Advised to call with any questions or concerns. This note was generated with [employer] software. It may contain incorrect words, spelling, and punctuation that were not noted in checking the note before signing.
--- NOTE | 2018-11-27 11:44 | PN.PCM_ITS ---
(1) Non-healing surgical wound Status: Chronic Current Visit: Yes Code(s): T81.89XA - Other complications of procedures, not elsewhere classified, initial encounter (2) Skin cancer of forehead Status: Chronic Current Visit: Yes Code(s): C44.309 - Unspecified malignant neoplasm of skin of other parts of face (3) Type 2 diabetes mellitus Status: Chronic Current Visit: Yes Code(s): E11.9 - Type 2 diabetes mellitus without complications Type of Wound Chief Complaint: Nonhealing basal cell carcinoma ulcer left frontal scalp with exposed bone. History of Wound: 72-year-old woman with a history of diabetes mellitus presented to [facility] last week with a nonhealing basal cell carcinoma ulcer left frontal scalp with exposed bone. She had a lesion on her left frontal scalp that was biopsied on 08/28/18. Pathology showed a basal cell carcinoma, ulcerated nodular with infiltrating features. She then underwent definitive excision of this basal cell carcinoma left frontal scalp using Moh's micrographic surgery on 10/02/18. The wound was allowed to heal with secondary intention. In the meantime, the healing wound extended down to the bone. A wound culture was done at her visit last week 11/06/18. It showed Coag negative Staph and Propionibacterium acnes. She was placed on Doxycycline. Will add Flagyl. Silver dressing changes were started. Today she denies fever. Her appetite is ok. Progress of Wound: Stable. No new concerns at this time. - Physical Exam Vital Signs Temp Pulse Resp BP 95.5 F L 96 16 126/63 H 11/20/18 10:11 11/20/18 10:11 11/20/18 10:11 11/20/18 10:11 General: Alert, Oriented x3, No apparent distress HEENT: Atraumatic, Normocephalic Oral: Moist Mucosa Neck: Supple Lungs: Normal air movement Extremities: No cyanosis Skin: Ulcer/ Wound Wound Measurements and Assessment WC - Nurse 1 - General Ulcer Measurement Start: 11/06/18 11:33 Freq: Status: Active Protocol: Activity Type Activity Date Activity User E-Sign Co-Sign Detail Recorded Client Recorded Date Recorded By Document 11/26/18 11:57 DV [id number] 11/27/18 09:36 DV 11/26/18 11:57 Wound Center Nurse 1 [Ulcer Assessment] #1 LEFT FOREHEAD -Combined with other wound No -Current Size (cm) - Length 1.3 -Current Size (cm) - Width 0.6 -Current Size (cm) - Depth 0.2 -Total Square Cm 0.78 -Photo Taken No -Epithelialization None Present -Tunneling No -Undermining/Tunneling No -Undermining/Tunneling Starts (O' 9 clock) -Undermining/Tunneling Ends (O'clock) 3 -Maximum Distance (cm) 0.5 -Circular Undermining No -Exudate Amt Small -Exudate Type Serous -Wound Margin Thickened -Granulation Amt None Present (0 %) -Granulation Quality N/A -Slough/Fibrin Yes -Necrosis Amt Large (67-100%) -Necrotic Tissue Type Adherent Slough -Texture (Elizaebth-wound Skin Appearance) Assessed Scarring -Moisture (Elizabeth-wound Skin Appearance No Abnormality ) Assessed -Color (Elizabeth-wound Skin Appearance) Assessed Erythema -Temperature (Elizabeth-wound Skin No Abnormality Appearance) (Pt Warm) -Tenderness on Palpation (Elizabeth-wound No Skin Appearance) -Ulcer Cleansing Rinsed/ Irrigated with Saline -Foul Odor after Cleansing No -Anesthetic Used 4% Lidocaine Solution WC - Nurse 2 - General Ulcer CM Notes Start: 11/06/18 11:33 Freq: Status: Active Protocol: Activity Type Activity Date Activity User E-Sign Co-Sign Detail Recorded Client Recorded Date Recorded By Document 11/27/18 09:43 MW [id number] 11/27/18 09:55 MW 11/27/18 09:43 Wound Center Nurse 2 [Procedure/Treatment] -Time 09:43 -Correct Patient Yes -Correct Side, Site, Position Yes -Correct Procedure Yes -Procedure Performed Yes -Type of Procedure Debridement -Clinical Debridement Subcutaneous -Post Debridement Size (cm) - Length 1.5 -Post Debridement Size (cm) - Width 0.7 -Post Debridement Size (cm) - Depth 0.3 -Total Square Cm 1.05 -Wound/Ulcer Outcome Not Healed -Ulcer Cleansing Rinsed/ Irrigated with Saline -Foul Odor after Cleansing No -Bioengineered Tissue No -Type of bioengineered Tissue EPIFIX -Expiration Date 05/01/23 -Product Lot Number [id number] -Percent Used 100 -Saline Lot Number [id number] -Bleeding Controlled with Pressure -Other UNDERMINING 9-3 , 0.6CM @1 -Offloading No -Treatment Response Procedure Tolerated Well [See Physician Procedure note for Specifics] Pain Scale: 0-10 Numeric [Pain] -Is Patient Pain Free? Yes Musculoskeletal: No Muscle Wasting Neurological: Cranial nerves II-XII grossly intact Psych/Mental Status: Normal Affect Debridement Note Post-Debridement Measurements/Treatment WC - Nurse 2 - General Ulcer CM Notes Start: 11/06/18 11:33 Freq: Status: Active Protocol: Activity Type Activity Date Activity User E-Sign Co-Sign Detail Recorded Client Recorded Date Recorded By Document 11/06/18 12:19 MW [id number] 11/06/18 12:24 MW Document 11/11/18 12:41 JF [id number] 11/11/18 12:42 JF Document 11/20/18 10:37 MW [id number] 11/20/18 10:42 MW Document 11/27/18 09:43 MW [id number] 11/27/18 09:55 MW 11/06/18 11/11/18 11/20/18 12:19 12:41 10:37 Wound Center Nurse 2 #1 LEFT FOREHEAD -Time 12:20 12:42 10:38 -Correct Patient Yes Yes Yes -Correct Side, Site, Position Yes Yes Yes -Correct Procedure Yes Yes Yes -Procedure Performed Yes Yes Yes -Type of Procedure Debridement Debridement Debridement -Clinical Debridement Subcutaneous Subcutaneous Subcutaneous -Post Debridement Size (cm) - Length 2.2 2.0 1.5 -Post Debridement Size (cm) - Width 1.5 1.2 0.9 -Post Debridement Size (cm) - Depth 0.4 0.2 0.2 -Total Square Cm 3.30 2.40 1.35 -Wound/Ulcer Outcome Not Healed Not Healed Not Healed -Ulcer Cleansing Rinsed/ Rinsed/ Rinsed/ Irrigated with Irrigated with Irrigated with Saline Saline Saline -Foul Odor after Cleansing No No No -Bioengineered Tissue No No No -Type of bioengineered Tissue -Expiration Date -Product Lot Number -Percent Used -Saline Lot Number -Bleeding Controlled with Pressure Pressure Pressure -Other -Offloading No No No -Treatment Response Procedure Procedure Procedure Tolerated Well Tolerated Well Tolerated Well Pain Scale: 0-10 Numeric Is Patient Pain Free? Yes Yes Yes 11/27/18 09:43 Wound Center Nurse 2 #1 LEFT FOREHEAD -Time 09:43 -Correct Patient Yes -Correct Side, Site, Position Yes -Correct Procedure Yes -Procedure Performed Yes -Type of Procedure Debridement -Clinical Debridement Subcutaneous -Post Debridement Size (cm) - Length 1.5 -Post Debridement Size (cm) - Width 0.7 -Post Debridement Size (cm) - Depth 0.3 -Total Square Cm 1.05 -Wound/Ulcer Outcome Not Healed -Ulcer Cleansing Rinsed/ Irrigated with Saline -Foul Odor after Cleansing No -Bioengineered Tissue No -Type of bioengineered Tissue EPIFIX -Expiration Date 05/01/23 -Product Lot Number [id number] -Percent Used 100 -Saline Lot Number [id number] -Bleeding Controlled with Pressure -Other UNDERMINING 9-3 , 0.6CM @1 -Offloading No -Treatment Response Procedure Tolerated Well Pain Scale: 0-10 Numeric Is Patient Pain Free? Yes Wound debrided: Left Forehead Wound Grade/Stage: Stage III Type of Debridement: Excisional debridement Anesthesia Used: 4% Lidocaine Solution Depth: Down to and including healthy tissue, in the subcutaneous layer Percentage of wound debrided: 100 Instrument Used: 3mm curette Tissue Removed: Slough and devitalized tissue Severity: Fat Layer Exposed - Exposed bones Amount of bleeding with debridement: Mild Bleeding Controlled with: Pressure Patient tolerated procedure well Assessment/Plan Active Problems Non-healing surgical wound (Chronic) Skin cancer of forehead (Chronic) Type 2 diabetes mellitus (Chronic) Assessment: 1. Nonhealing basal cell carcinoma ulcer left frontal scalp with exposed bone. 2. Diabetes mellitus. 3. Former smoker. Plan: Debridement done as documented above. Procedure was well-tolerated. Wound is very slowly improving however, exposed bone still present increasing the risk for osteomyelitis. Using an advanced wound care product is medically necessary to improve her healing chances and time to healing to reduce the likelyhood of Osteomyelitis. Wound has been present for about 2 months and she had tried some traditional wound care products with failure to progress prior to starting aquacel silver about 3 weeks ago. Appreciate consult/imput from Dr. Lopez. Initial application of Epifix done today using 100% of product. Moistened with saline and adaptic over top. Leave in place for 1 week. Continue increased protein intake and optimal blood sugar control. Follow-up in 1 week. Advised to call with any questions or concerns. This note was generated with [employer] software. It may contain incorrect words, spelling, and punctuation that were not noted in checking the note before signing.
== END 2018-11-28 23:59 ==
LOC: WC 09:30
PROVIDERS: Visit Provider Internal Medicine
DX: T81.89XA Other complications of procedures, not elsewhere classified, initial encounter (principal); C44.309 Unspecified malignant neoplasm of skin of other parts of face; E11.9 Type 2 diabetes mellitus without complications; Z87.891 Personal history of nicotine dependence; Y83.9 Surgical procedure, unspecified as the cause of abnormal reaction of the patient, or of later complication, without mention of misadventure at the time of the procedure; I10 Essential (primary) hypertension; E78.5 Hyperlipidemia, unspecified; F03.90 Unspecified dementia, unspecified severity, without behavioral disturbance, psychotic disturbance, mood disturbance, and anxiety; Z86.73 Personal history of transient ischemic attack (TIA), and cerebral infarction without residual deficits
CPT/HCPCS: 11042; 15275; 87070; 87075; 87077; 87205; 99203; Q4186; G0463

== ENCOUNTER 2018-12-25 10:00 | Outpatient (RCR) | payer MEDICARE, OTHER, SELFPAY ==
[2018-11-20 10:11] VITALS: BMI 30.8
[2018-11-29 01:32] VITALS: BP 126/63; PULSE 96; RESP 16; TEMP 35.3
[2018-12-04 09:57] VITALS: BP 147/92; PULSE 92; RESP 18; TEMP 36.7; BMI 30.8
--- NOTE | 2018-12-04 10:46 | PCM.WC.PN ---
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 History of Wound: 72-year-old woman with a history of diabetes mellitus presented to the [facility] Center last week with a nonhealing basal cell carcinoma ulcer left frontal scalp with exposed bone. She had a lesion on her left frontal scalp that was biopsied on 08/28/18. Pathology showed a basal cell carcinoma, ulcerated nodular with infiltrating features. She then underwent definitive excision of this basal cell carcinoma left frontal scalp using Moh's micrographic surgery on 10/02/18. The wound was allowed to heal with secondary intention. In the meantime, the healing wound extended down to the bone. A wound culture was done at her visit last week 11/06/18. It showed Coag negative Staph and Propionibacterium acnes. She was placed on Doxycycline. Will add Flagyl. Silver dressing changes were started. Today she denies fever. Her appetite is ok. Progress of Wound: Stable. No new concerns at this time. Has had one application of epi-fix so far. - Physical Exam Vital Signs Temp Pulse Resp BP 98.0 F 92 18 147/92 H 12/04/18 09:57 12/04/18 09:57 12/04/18 09:57 12/04/18 09:57 General: Alert, Oriented x3, Cooperative, No apparent distress HEENT: Atraumatic, Normocephalic Oral: Moist Mucosa Neck: Supple Lungs: Normal air movement Extremities: No cyanosis Skin: Ulcer/ Wound Wound Measurements and Assessment WC - Nurse 1 - General Ulcer Measurement Start: 12/04/18 09:56 Freq: Status: Active Protocol: Activity Type Activity Date Activity User E-Sign Co-Sign Detail Recorded Client Recorded Date Recorded By Document 12/04/18 09:57 DV [id number] 12/04/18 10:04 DV 12/04/18 09:57 Wound Center Nurse 1 [Ulcer Assessment] #1 LEFT FOREHEAD -Combined with other wound No -Current Size (cm) - Length 0.5 -Current Size (cm) - Width 1.3 -Current Size (cm) - Depth 0.1 -Total Square Cm 0.65 -Date of Last Picture (Recall this 12/04/18 field) -Photo Taken Yes -Tunneling No -Undermining/Tunneling No -Circular Undermining No -Exudate Amt None Present -Exudate Type Serous -Wound Margin Indistinct, Non -Visible -Slough/Fibrin Yes -Necrosis Amt Medium (34-66%) -Necrotic Tissue Type Adherent Slough -Structure Exposed None/Limited to Skin Breakdown -Texture (Elizabeth-wound Skin Appearance) Assessed -Moisture (Elizabeth-wound Skin Appearance Assessed ) -Color (Elizabeth-wound Skin Appearance) Assessed -Temperature (Elizabeth-wound Skin No Abnormality Appearance) (Pt Warm) -Tenderness on Palpation (Elizabeth-wound No Skin Appearance) - Nurse 2 - General Ulcer CM Notes Start: 12/04/18 09:56 Freq: Status: Active Protocol: Activity Type Activity Date Activity User E-Sign Co-Sign Detail Recorded Client Recorded Date Recorded By Document 12/04/18 10:23 MW [id number] 12/04/18 10:34 MW 12/04/18 10:23 Wound Center Nurse 2 [Procedure/Treatment] -Time 10:24 -Correct Patient Yes -Correct Side, Site, Position Yes -Correct Procedure Yes -Procedure Performed Yes -Type of Procedure Debridement -Clinical Debridement Subcutaneous -Post Debridement Size (cm) - Length 1.3 -Post Debridement Size (cm) - Width 0.6 -Post Debridement Size (cm) - Depth 0.2 -Total Square Cm 0.78 -Wound/Ulcer Outcome Not Healed -Ulcer Cleansing Rinsed/ Irrigated with Saline -Foul Odor after Cleansing No -Bioengineered Tissue Yes -Type of bioengineered Tissue EPIFIX -Expiration Date 08/01/23 -Product Lot Number [id number] -Percent Used 100 -Saline Lot Number [id number] -Bleeding Controlled with Pressure -Other undermining @ 12-1 , 0.5cm -Offloading No -Treatment Response Procedure Tolerated Well [See Physician Procedure note for Specifics] Pain Scale: 0-10 Numeric [Pain] -Is Patient Pain Free? Yes Musculoskeletal: No Muscle Wasting Neurological: Cranial nerves II-XII grossly intact Psych/Mental Status: Normal Affect Debridement Note Post-Debridement Measurements/Treatment WC - Nurse 2 - General Ulcer CM Notes Start: 12/04/18 09:56 Freq: Status: Active Protocol: Activity Type Activity Date Activity User E-Sign Co-Sign Detail Recorded Client Recorded Date Recorded By Document 12/04/18 10:23 MW [id number] 12/04/18 10:34 MW 12/04/18 10:23 Wound Center Nurse 2 #1 LEFT FOREHEAD -Time 10:24 -Correct Patient Yes -Correct Side, Site, Position Yes -Correct Procedure Yes -Procedure Performed Yes -Type of Procedure Debridement -Clinical Debridement Subcutaneous -Post Debridement Size (cm) - Length 1.3 -Post Debridement Size (cm) - Width 0.6 -Post Debridement Size (cm) - Depth 0.2 -Total Square Cm 0.78 -Wound/Ulcer Outcome Not Healed -Ulcer Cleansing Rinsed/ Irrigated with Saline -Foul Odor after Cleansing No -Bioengineered Tissue Yes -Type of bioengineered Tissue EPIFIX -Expiration Date 05/01/23 -Product Lot Number [id number] -Percent Used 100 -Saline Lot Number [id number] -Bleeding Controlled with Pressure -Other undermining @ 12-1 , 0.5cm -Offloading No -Treatment Response Procedure Tolerated Well Pain Scale: 0-10 Numeric Is Patient Pain Free? 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 Nonhealing basal cell carcinoma ulcer left frontal scalp with exposed bone. 2. Diabetes mellitus. 3. Former smoker. Plan: Much better granulation tissue today with only minimal exposed bone after 1 application of epi-fix. No signs of infection at this time. Debridement done as documented above. Procedure was well-tolerated. Continued use of epi-fix remains medically necessary to improve her healing chances and time to healing to reduce the likelyhood of Osteomyelitis due to exposed bone. Wound has been present for about 2 months and she had tried some traditional wound care products with failure to progress prior to starting aquacel silver about 3 weeks ago. Appreciate consult/imput from Dr. Lopez. Second application of Epifix done today using 100% of product. Moistened with saline and wound veil over top. Leave in place for 1 week. Continue increased protein intake and optimal blood sugar control. Follow-up in 1 week. Advised to call with any questions or concerns. This note was generated with [employer] dictation software. It may contain incorrect words, spelling, and punctuation that were not noted in checking the note before signing.
--- NOTE | 2018-12-04 10:51 | PN.PCM_ITS ---
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 History of Wound: 72-year-old woman with a history of diabetes mellitus presented to [facility] last week with a nonhealing basal cell carcinoma ulcer left frontal scalp with exposed bone. She had a lesion on her left frontal scalp that was biopsied on 08/28/18. Pathology showed a basal cell carcinoma, ulcerated nodular with infiltrating features. She then underwent definitive excision of this basal cell carcinoma left frontal scalp using Moh's micrographic surgery on 10/02/18. The wound was allowed to heal with secondary intention. In the meantime, the healing wound extended down to the bone. A wound culture was done at her visit last week 11/06/18. It showed Coag negative Staph and Propionibacterium acnes. She was placed on Doxycycline. Will add Flagyl. Silver dressing changes were started. Today she denies fever. Her appetite is ok. Progress of Wound: Stable. No new concerns at this time. Has had one application of epi-fix so far. - Physical Exam Vital Signs Temp Pulse Resp BP 98.0 F 92 18 147/92 H 12/04/18 09:57 12/04/18 09:57 12/04/18 09:57 12/04/18 09:57 General: Alert, Oriented x3, Cooperative, No apparent distress HEENT: Atraumatic, Normocephalic Oral: Moist Mucosa Neck: Supple Lungs: Normal air movement Extremities: No cyanosis Skin: Ulcer/ Wound Wound Measurements and Assessment WC - Nurse 1 - General Ulcer Measurement Start: 12/04/18 09:56 Freq: Status: Active Protocol: Activity Type Activity Date Activity User E-Sign Co-Sign Detail Recorded Client Recorded Date Recorded By Document 12/04/18 09:57 DV [id number] 12/04/18 10:04 DV 12/04/18 09:57 Wound Center Nurse 1 [Ulcer Assessment] #1 LEFT FOREHEAD -Combined with other wound No -Current Size (cm) - Length 0.5 -Current Size (cm) - Width 1.3 -Current Size (cm) - Depth 0.1 -Total Square Cm 0.65 -Date of Last Picture (Recall this 12/04/18 field) -Photo Taken Yes -Tunneling No -Undermining/Tunneling No -Circular Undermining No -Exudate Amt None Present -Exudate Type Serous -Wound Margin Indistinct, Non -Visible -Slough/Fibrin Yes -Necrosis Amt Medium (34-66%) -Necrotic Tissue Type Adherent Slough -Structure Exposed None/Limited to Skin Breakdown -Texture (Elizabeth-wound Skin Appearance) Assessed -Moisture (Elizabeth-wound Skin Appearance Assessed ) -Color (Elizabeth-wound Skin Appearance) Assessed -Temperature (Elizabeth-wound Skin No Abnormality Appearance) (Pt Warm) -Tenderness on Palpation (Elizabeth-wound No Skin Appearance) - Nurse 2 - General Ulcer CM Notes Start: 12/04/18 09:56 Freq: Status: Active Protocol: Activity Type Activity Date Activity User E-Sign Co-Sign Detail Recorded Client Recorded Date Recorded By Document 12/04/18 10:23 MW [id number] 12/04/18 10:34 MW 12/04/18 10:23 Wound Center Nurse 2 [Procedure/Treatment] -Time 10:24 -Correct Patient Yes -Correct Side, Site, Position Yes -Correct Procedure Yes -Procedure Performed Yes -Type of Procedure Debridement -Clinical Debridement Subcutaneous -Post Debridement Size (cm) - Length 1.3 -Post Debridement Size (cm) - Width 0.6 -Post Debridement Size (cm) - Depth 0.2 -Total Square Cm 0.78 -Wound/Ulcer Outcome Not Healed -Ulcer Cleansing Rinsed/ Irrigated with Saline -Foul Odor after Cleansing No -Bioengineered Tissue Yes -Type of bioengineered Tissue EPIFIX -Expiration Date 08/01/23 -Product Lot Number [id number] -Percent Used 100 -Saline Lot Number [id number] -Bleeding Controlled with Pressure -Other undermining @ 12-1 , 0.5cm -Offloading No -Treatment Response Procedure Tolerated Well [See Physician Procedure note for Specifics] Pain Scale: 0-10 Numeric [Pain] -Is Patient Pain Free? Yes Musculoskeletal: No Muscle Wasting Neurological: Cranial nerves II-XII grossly intact Psych/Mental Status: Normal Affect Debridement Note Post-Debridement Measurements/Treatment WC - Nurse 2 - General Ulcer CM Notes Start: 12/04/18 09:56 Freq: Status: Active Protocol: Activity Type Activity Date Activity User E-Sign Co-Sign Detail Recorded Client Recorded Date Recorded By Document 12/04/18 10:23 MW [id number] 12/04/18 10:34 MW 12/04/18 10:23 Wound Center Nurse 2 #1 LEFT FOREHEAD -Time 10:24 -Correct Patient Yes -Correct Side, Site, Position Yes -Correct Procedure Yes -Procedure Performed Yes -Type of Procedure Debridement -Clinical Debridement Subcutaneous -Post Debridement Size (cm) - Length 1.3 -Post Debridement Size (cm) - Width 0.6 -Post Debridement Size (cm) - Depth 0.2 -Total Square Cm 0.78 -Wound/Ulcer Outcome Not Healed -Ulcer Cleansing Rinsed/ Irrigated with Saline -Foul Odor after Cleansing No -Bioengineered Tissue Yes -Type of bioengineered Tissue EPIFIX -Expiration Date 05/01/23 -Product Lot Number [id number] -Percent Used 100 -Saline Lot Number [id number] -Bleeding Controlled with Pressure -Other undermining @ 12-1 , 0.5cm -Offloading No -Treatment Response Procedure Tolerated Well Pain Scale: 0-10 Numeric Is Patient Pain Free? 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 Nonhealing basal cell carcinoma ulcer left frontal scalp with exposed bone. 2. Diabetes mellitus. 3. Former smoker. Plan: Much better granulation tissue today with only minimal exposed bone after 1 application of epi-fix. No signs of infection at this time. Debridement done as documented above. Procedure was well-tolerated. Continued use of epi-fix remains medically necessary to improve her healing chances and time to healing to reduce the likelyhood of Osteomyelitis due to exposed bone. Wound has been present for about 2 months and she had tried some traditional wound care products with failure to progress prior to starting aquacel silver about 3 weeks ago. Appreciate consult/imput from Dr. Lopez. Second application of Epifix done today using 100% of product. Moistened with saline and wound veil over top. Leave in place for 1 week. Continue increased protein intake and optimal blood sugar control. Follow-up in 1 week. Advised to call with any questions or concerns. This note was generated with [employer] dictation software. It may contain incorrect words, spelling, and punctuation that were not noted in checking the note before signing.
[2018-12-11 10:59] VITALS: BP 164/89; PULSE 89; RESP 16; TEMP 36.9; BMI 30.8
--- NOTE | 2018-12-11 11:47 | PCM.WC.PN ---
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 History of Wound: 72-year-old woman with a history of diabetes mellitus presented to the Wound Center last week with a nonhealing basal cell carcinoma ulcer left frontal scalp with exposed bone. She had a lesion on her left frontal scalp that was biopsied on 08/28/18. Pathology showed a basal cell carcinoma, ulcerated nodular with infiltrating features. She then underwent definitive excision of this basal cell carcinoma left frontal scalp using Moh's micrographic surgery on 10/02/18. The wound was allowed to heal with secondary intention. In the meantime, the healing wound extended down to the bone. A wound culture was done at her visit last week 11/06/18. It showed Coag negative Staph and Propionibacterium acnes. She was placed on Doxycycline. Will add Flagyl. Silver dressing changes were started. Today she denies fever. Her appetite is ok. Progress of Wound: Stable. No new concerns at this time. Has had two applications of epi-fix so far. - Physical Exam Vital Signs Temp Pulse Resp BP 98.4 F 89 16 164/89 H 12/11/18 10:59 12/11/18 10:59 12/11/18 10:59 12/11/18 10:59 General: Alert, Oriented x3, Cooperative, No apparent distress HEENT: Atraumatic, Normocephalic Oral: Moist Mucosa Neck: Supple Lungs: Normal air movement Skin: Ulcer/ Wound Wound Measurements and Assessment WC - Nurse 1 - General Ulcer Measurement Start: 12/04/18 09:56 Freq: Status: Active Protocol: Activity Type Activity Date Activity User E-Sign Co-Sign Detail Recorded Client Recorded Date Recorded By Document 12/11/18 10:59 BM [id number] 12/11/18 11:04 [facility] 12/11/18 10:59 Wound Center Nurse 1 [Ulcer Assessment] #1 LEFT FOREHEAD -Combined with other wound No -Current Size (cm) - Length 0.6 -Current Size (cm) - Width 1 -Current Size (cm) - Depth 0.2 -Total Square Cm 0.6 -Photo Taken No -Epithelialization None Present -Tunneling No -Undermining/Tunneling No -Circular Undermining No -Exudate Amt None Present -Wound Margin Distinct, Outline Attached -Granulation Amt None Present (0 %) -Slough/Fibrin Yes -Necrosis Amt Large (67-100%) -Necrotic Tissue Type Adherent Slough -Texture (Elizabeth-wound Skin Appearance) Scarring -Moisture (Elizabeth-wound Skin Appearance Assessed ) -Color (Elizabeth-wound Skin Appearance) Assessed Erythema -Temperature (Elizabeth-wound Skin No Abnormality Appearance) (Pt Warm) -Tenderness on Palpation (Elizabeth-wound No Skin Appearance) -Ulcer Cleansing Rinsed/ Irrigated with Saline -Foul Odor after Cleansing No -Anesthetic Used 5% Lidocaine Gel - Nurse 2 - General Ulcer CM Notes Start: 12/04/18 09:56 Freq: Status: Active Protocol: Activity Type Activity Date Activity User E-Sign Co-Sign Detail Recorded Client Recorded Date Recorded By Document 12/11/18 11:19 MW [id number] 12/11/18 11:28 MW 12/11/18 11:19 Wound Center Nurse 2 [Procedure/Treatment] -Time 11:19 -Correct Patient Yes -Correct Side, Site, Position Yes -Correct Procedure Yes -Procedure Performed Yes -Type of Procedure Debridement -Clinical Debridement Subcutaneous -Post Debridement Size (cm) - Length 1.0 -Post Debridement Size (cm) - Width 0.5 -Post Debridement Size (cm) - Depth 0.1 -Total Square Cm 0.50 -Wound/Ulcer Outcome Not Healed -Ulcer Cleansing Rinsed/ Irrigated with Saline -Foul Odor after Cleansing No -Type of bioengineered Tissue EPIFIX -Expiration Date 05/01/23 -Product Lot Number [id number] -Percent Used 100 -Saline Lot Number [id number] -Bleeding Controlled with Pressure -Offloading No -Treatment Response Procedure Tolerated Well [See Physician Procedure note for Specifics] Pain Scale: 0-10 Numeric [Pain] -Is Patient Pain Free? Yes Musculoskeletal: No Muscle Wasting Neurological: Cranial nerves II-XII grossly intact Psych/Mental Status: Normal Affect Debridement Note Post-Debridement Measurements/Treatment WC - Nurse 2 - General Ulcer CM Notes Start: 12/04/18 09:56 Freq: Status: Active Protocol: Activity Type Activity Date Activity User E-Sign Co-Sign Detail Recorded Client Recorded Date Recorded By Document 12/04/18 10:23 MW [id number] 12/04/18 10:34 MW Document 12/11/18 11:19 MW [id number] 12/11/18 11:28 MW 12/04/18 12/11/18 10:23 11:19 Wound Center Nurse 2 #1 LEFT FOREHEAD -Time 10:24 11:19 -Correct Patient Yes Yes -Correct Side, Site, Position Yes Yes -Correct Procedure Yes Yes -Procedure Performed Yes Yes -Type of Procedure Debridement Debridement -Clinical Debridement Subcutaneous Subcutaneous -Post Debridement Size (cm) - Length 1.3 1.0 -Post Debridement Size (cm) - Width 0.6 0.5 -Post Debridement Size (cm) - Depth 0.2 0.1 -Total Square Cm 0.78 0.50 -Wound/Ulcer Outcome Not Healed Not Healed -Ulcer Cleansing Rinsed/ Rinsed/ Irrigated with Irrigated with Saline Saline -Foul Odor after Cleansing No No -Bioengineered Tissue Yes -Type of bioengineered Tissue EPIFIX EPIFIX -Expiration Date 05/01/23 05/01/23 -Product Lot Number [id number] -Percent Used 100 100 -Saline Lot Number [id number] -Bleeding Controlled with Pressure Pressure -Other undermining @ 12-1 , 0.5cm -Offloading No No -Treatment Response Procedure Procedure Tolerated Well Tolerated Well Pain Scale: 0-10 Numeric Is Patient Pain Free? 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 Nonhealing basal cell carcinoma ulcer left frontal scalp with exposed bone. 2. Diabetes mellitus. 3. Former smoker. Plan: Continues to show good improvement with bareful visible exposed bone on inspection after 2 applications of epi-fix. No signs of infection at this time. Debridement done as documented above. Procedure was well-tolerated. Continued use of epi-fix remains medically necessary to improve her healing chances and time to healing to reduce the likelyhood of Osteomyelitis due to proxinity to bone. Wound has been present for about 2 months and she had tried some traditional wound care products with failure to progress prior to starting aquacel silver about 4 -5 weeks ago. Appreciate consult/imput from Dr. Lopez. Third application of Epifix done today using 100% of product. Moistened with saline and wound veil over top. Leave in place for 1 week. Continue increased protein intake and optimal blood sugar control. Follow-up in 1 week. Advised to call with any questions or concerns. This note was generated with [employer] software. It may contain incorrect words, spelling, and punctuation that were not noted in checking the note before signing.
--- NOTE | 2018-12-11 11:51 | PN.PCM_ITS ---
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 History of Wound: 72-year-old woman with a history of diabetes mellitus presented to the Wound Center last week with a nonhealing basal cell carcinoma ulcer left frontal scalp with exposed bone. She had a lesion on her left frontal scalp that was biopsied on 08/28/18. Pathology showed a basal cell carcinoma, ulcerated nodular with infiltrating features. She then underwent definitive excision of this basal cell carcinoma left frontal scalp using Moh's micrographic surgery on 10/02/18. The wound was allowed to heal with secondary intention. In the meantime, the healing wound extended down to the bone. A wound culture was done at her visit last week 11/06/18. It showed Coag negative Staph and Propionibacterium acnes. She was placed on Doxycycline. Will add Flagyl. Silver dressing changes were started. Today she denies fever. Her appetite is ok. Progress of Wound: Stable. No new concerns at this time. Has had two applications of epi-fix so far. - Physical Exam Vital Signs Temp Pulse Resp BP 98.4 F 89 16 164/89 H 12/11/18 10:59 12/11/18 10:59 12/11/18 10:59 12/11/18 10:59 General: Alert, Oriented x3, Cooperative, No apparent distress HEENT: Atraumatic, Normocephalic Oral: Moist Mucosa Neck: Supple Lungs: Normal air movement Skin: Ulcer/ Wound Wound Measurements and Assessment WC - Nurse 1 - General Ulcer Measurement Start: 12/04/18 09:56 Freq: Status: Active Protocol: Activity Type Activity Date Activity User E-Sign Co-Sign Detail Recorded Client Recorded Date Recorded By Document 12/11/18 10:59 BM [id number] 12/11/18 11:04 [facility] 12/11/18 10:59 Wound Center Nurse 1 [Ulcer Assessment] #1 LEFT FOREHEAD -Combined with other wound No -Current Size (cm) - Length 0.6 -Current Size (cm) - Width 1 -Current Size (cm) - Depth 0.2 -Total Square Cm 0.6 -Photo Taken No -Epithelialization None Present -Tunneling No -Undermining/Tunneling No -Circular Undermining No -Exudate Amt None Present -Wound Margin Distinct, Outline Attached -Granulation Amt None Present (0 %) -Slough/Fibrin Yes -Necrosis Amt Large (67-100%) -Necrotic Tissue Type Adherent Slough -Texture (Elizabeth-wound Skin Appearance) Scarring -Moisture (Elizabeth-wound Skin Appearance Assessed ) -Color (Elizabeth-wound Skin Appearance) Assessed Erythema -Temperature (Elizabeth-wound Skin No Abnormality Appearance) (Pt Warm) -Tenderness on Palpation (Elizabeth-wound No Skin Appearance) -Ulcer Cleansing Rinsed/ Irrigated with Saline -Foul Odor after Cleansing No -Anesthetic Used 5% Lidocaine Gel - Nurse 2 - General Ulcer CM Notes Start: 12/04/18 09:56 Freq: Status: Active Protocol: Activity Type Activity Date Activity User E-Sign Co-Sign Detail Recorded Client Recorded Date Recorded By Document 12/11/18 11:19 MW [id number] 12/11/18 11:28 MW 12/11/18 11:19 Wound Center Nurse 2 [Procedure/Treatment] -Time 11:19 -Correct Patient Yes -Correct Side, Site, Position Yes -Correct Procedure Yes -Procedure Performed Yes -Type of Procedure Debridement -Clinical Debridement Subcutaneous -Post Debridement Size (cm) - Length 1.0 -Post Debridement Size (cm) - Width 0.5 -Post Debridement Size (cm) - Depth 0.1 -Total Square Cm 0.50 -Wound/Ulcer Outcome Not Healed -Ulcer Cleansing Rinsed/ Irrigated with Saline -Foul Odor after Cleansing No -Type of bioengineered Tissue EPIFIX -Expiration Date 05/01/23 -Product Lot Number [id number] -Percent Used 100 -Saline Lot Number [id number] -Bleeding Controlled with Pressure -Offloading No -Treatment Response Procedure Tolerated Well [See Physician Procedure note for Specifics] Pain Scale: 0-10 Numeric [Pain] -Is Patient Pain Free? Yes Musculoskeletal: No Muscle Wasting Neurological: Cranial nerves II-XII grossly intact Psych/Mental Status: Normal Affect Debridement Note Post-Debridement Measurements/Treatment WC - Nurse 2 - General Ulcer CM Notes Start: 12/04/18 09:56 Freq: Status: Active Protocol: Activity Type Activity Date Activity User E-Sign Co-Sign Detail Recorded Client Recorded Date Recorded By Document 12/04/18 10:23 MW [id number] 12/04/18 10:34 MW Document 12/11/18 11:19 MW [id number] 12/11/18 11:28 MW 12/04/18 12/11/18 10:23 11:19 Wound Center Nurse 2 #1 LEFT FOREHEAD -Time 10:24 11:19 -Correct Patient Yes Yes -Correct Side, Site, Position Yes Yes -Correct Procedure Yes Yes -Procedure Performed Yes Yes -Type of Procedure Debridement Debridement -Clinical Debridement Subcutaneous Subcutaneous -Post Debridement Size (cm) - Length 1.3 1.0 -Post Debridement Size (cm) - Width 0.6 0.5 -Post Debridement Size (cm) - Depth 0.2 0.1 -Total Square Cm 0.78 0.50 -Wound/Ulcer Outcome Not Healed Not Healed -Ulcer Cleansing Rinsed/ Rinsed/ Irrigated with Irrigated with Saline Saline -Foul Odor after Cleansing No No -Bioengineered Tissue Yes -Type of bioengineered Tissue EPIFIX EPIFIX -Expiration Date 05/01/23 05/01/23 -Product Lot Number [id number] -Percent Used 100 100 -Saline Lot Number [id number] -Bleeding Controlled with Pressure Pressure -Other undermining @ 12-1 , 0.5cm -Offloading No No -Treatment Response Procedure Procedure Tolerated Well Tolerated Well Pain Scale: 0-10 Numeric Is Patient Pain Free? 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 Nonhealing basal cell carcinoma ulcer left frontal scalp with exposed bone. 2. Diabetes mellitus. 3. Former smoker. Plan: Continues to show good improvement with bareful visible exposed bone on inspection after 2 applications of epi-fix. No signs of infection at this t cassie. Debridement done as documented above. Procedure was well-tolerated. Continued use of epi-fix remains medically necessary to improve her healing chances and time to healing to reduce the likelyhood of Osteomyelitis due to proxinity to bone. Wound has been present for about 2 months and she had tried some traditional wound care products with failure to progress prior to starting aquacel silver about 4 -5 weeks ago. Appreciate consult/imput from Dr. Lopez. Third application of Epifix done today using 100% of product. Moistened with saline and wound veil over top. Leave in place for 1 week. Continue increased protein intake and optimal blood sugar control. Follow-up in 1 week. Advised to call with any questions or concerns. This note was generated with [employer] software. It may contain incorrect words, spelling, and punctuation that were not noted in checking the note before signing.
[2018-12-18 09:39] VITALS: BP 133/80; PULSE 97; RESP 18; TEMP 36; BMI 30.8
--- NOTE | 2018-12-18 11:46 | PCM.WC.PN ---
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 History of Wound: 72-year-old woman with a history of diabetes mellitus presented to [facility] last week with a nonhealing basal cell carcinoma ulcer left frontal scalp with exposed bone. She had a lesion on her left frontal scalp that was biopsied on 08/28/18. Pathology showed a basal cell carcinoma, ulcerated nodular with infiltrating features. She then underwent definitive excision of this basal cell carcinoma left frontal scalp using Moh's micrographic surgery on 10/02/18. The wound was allowed to heal with secondary intention. In the meantime, the healing wound extended down to the bone. A wound culture was done at her visit last week 11/06/18. It showed Coag negative Staph and Propionibacterium acnes. She was placed on Doxycycline. Will add Flagyl. Silver dressing changes were started. Today she denies fever. Her appetite is ok. Progress of Wound: Stable. No new concerns at this time. Has had 3 applications of epi-fix so far. - Physical Exam Vital Signs Temp Pulse Resp BP 96.8 F L 97 18 133/80 H 12/18/18 09:39 12/18/18 09:39 12/18/18 09:39 12/18/18 09:39 General: Alert, Oriented x3, Cooperative, No apparent distress HEENT: Atraumatic, Normocephalic Oral: Moist Mucosa Neck: Supple Lungs: Normal air movement Abdomen: Non Tender Extremities: No cyanosis Skin: Ulcer/ Wound Wound Measurements and Assessment - Nurse 1 - General Ulcer Measurement Start: 12/04/18 09:56 Freq: Status: Active Protocol: Activity Type Activity Date Activity User E-Sign Co-Sign Detail Recorded Client Recorded Date Recorded By Document 12/18/18 09:39 DL [id number] 12/18/18 09:43 DL 12/18/18 09:39 Wound Center Nurse 1 [Ulcer Assessment] #1 LEFT FOREHEAD -Current Size (cm) - Length 0.8 -Current Size (cm) - Width 0.5 -Current Size (cm) - Depth 0.1 -Total Square Cm 0.40 -Photo Taken No -Exudate Amt None Present -Wound Margin Distinct, Outline Attached -Granulation Amt None Present (0 %) -Necrosis Amt Large (67-100%) -Necrotic Tissue Type Eschar -Structure Exposed N/A -Texture (Elizabeth-wound Skin Appearance) Scarring -Moisture (Elizabeth-wound Skin Appearance No Abnormality ) -Color (Elizabeth-wound Skin Appearance) Rubor -Tenderness on Palpation (Elizabeth-wound No Skin Appearance) -Ulcer Cleansing Rinsed/ Irrigated with Saline -Foul Odor after Cleansing No -Anesthetic Used 4% Lidocaine Solution WC - Nurse 2 - General Ulcer CM Notes Start: 12/04/18 09:56 Freq: Status: Active Protocol: Activity Type Activity Date Activity User E-Sign Co-Sign Detail Recorded Client Recorded Date Recorded By Document 12/18/18 10:18 MW [id number] 12/18/18 10:24 MW 12/18/18 10:18 Wound Center Nurse 2 [Procedure/Treatment] -Time 10:19 -Correct Patient Yes -Correct Side, Site, Position Yes -Correct Procedure Yes -Procedure Performed Yes -Type of Procedure Debridement -Clinical Debridement Subcutaneous -Post Debridement Size (cm) - Length 0.8 -Post Debridement Size (cm) - Width 0.4 -Post Debridement Size (cm) - Depth 0.1 -Total Square Cm 0.32 -Wound/Ulcer Outcome Not Healed -Ulcer Cleansing Rinsed/ Irrigated with Saline -Foul Odor after Cleansing No -Bioengineered Tissue Yes -Type of bioengineered Tissue EPIFIX -Expiration Date 06/01/23 -Product Lot Number [id number] -Percent Used 100 -Saline Lot Number [id number] -Bleeding Controlled with Pressure -Offloading No -Treatment Response Procedure Tolerated Well [See Physician Procedure note for Specifics] Pain Scale: 0-10 Numeric [Pain] -Is Patient Pain Free? Yes Musculoskeletal: No Muscle Wasting Neurological: Cranial nerves II-XII grossly intact Psych/Mental Status: Normal Affect Debridement Note Post-Debridement Measurements/Treatment WC - Nurse 2 - General Ulcer CM Notes Start: 12/04/18 09:56 Freq: Status: Active Protocol: Activity Type Activity Date Activity User E-Sign Co-Sign Detail Recorded Client Recorded Date Recorded By Document 12/04/18 10:23 MW [id number] 12/04/18 10:34 MW Document 12/11/18 11:19 MW [id number] 12/11/18 11:28 MW Document 12/18/18 10:18 MW [id number] 12/18/18 10:24 MW 12/04/18 12/11/18 12/18/18 10:23 11:19 10:18 Wound Center Nurse 2 #1 LEFT FOREHEAD -Time 10:24 11:19 10:19 -Correct Patient Yes Yes Yes -Correct Side, Site, Position Yes Yes Yes -Correct Procedure Yes Yes Yes -Procedure Performed Yes Yes Yes -Type of Procedure Debridement Debridement Debridement -Clinical Debridement Subcutaneous Subcutaneous Subcutaneous -Post Debridement Size (cm) - Length 1.3 1.0 0.8 -Post Debridement Size (cm) - Width 0.6 0.5 0.4 -Post Debridement Size (cm) - Depth 0.2 0.1 0.1 -Total Square Cm 0.78 0.50 0.32 -Wound/Ulcer Outcome Not Healed Not Healed Not Healed -Ulcer Cleansing Rinsed/ Rinsed/ Rinsed/ Irrigated with Irrigated with Irrigated with Saline Saline Saline -Foul Odor after Cleansing No No No -Bioengineered Tissue Yes Yes -Type of bioengineered Tissue EPIFIX EPIFIX EPIFIX -Expiration Date 05/01/23 05/01/23 06/01/23 -Product Lot Number [id number] -Percent Used 100 100 100 -Saline Lot Number [id number] -Bleeding Controlled with Pressure Pressure Pressure -Other undermining @ 12-1 , 0.5cm -Offloading No No No -Treatment Response Procedure Procedure Procedure Tolerated Well Tolerated Well Tolerated Well Pain Scale: 0-10 Numeric Is Patient Pain Free? 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 Nonhealing basal cell carcinoma ulcer left frontal scalp with exposed bone. 2. Diabetes mellitus. 3. Former smoker. Plan: Consistent improvement. No signs of infection at this time. Debridement done as documented above. Procedure was well-tolerated. Continued use of epi-fix remains medically necessary due to significant improvement so far and increase time to healing to reduce the likelyhood of Osteomyelitis due to proximity to bone. Wound has been present for about 2 months and she had tried some traditional wound care products with failure to progress prior to starting aquacel silver here which was also used for some weeks.. Appreciate consult/imput from Dr. Lopez. Fourth application of Epifix done today using 100% of product. Moistened with saline and wound veil over top. Leave in place for 1 week. Continue increased protein intake and optimal blood sugar control. Follow-up in 1 week. Advised to call with any questions or concerns. This note was generated with [employer] software. It may contain incorrect words, spelling, and punctuation that were not noted in checking the note before signing.
--- NOTE | 2018-12-18 11:52 | PN.PCM_ITS ---
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 History of Wound: 72-year-old woman with a history of diabetes mellitus presented to the Wound Center last week with a nonhealing basal cell carcinoma ulcer left frontal scalp with exposed bone. She had a lesion on her left frontal scalp that was biopsied on 08/28/18. Pathology showed a basal cell carcinoma, ulcerated nodular with infiltrating features. She then underwent definitive excision of this basal cell carcinoma left frontal scalp using Moh's micrographic surgery on 10/02/18. The wound was allowed to heal with secondary intention. In the meantime, the healing wound extended down to the bone. A wound culture was done at her visit last week 11/06/18. It showed Coag negative Staph and Propionibacterium acnes. She was placed on Doxycycline. Will add Flagyl. Silver dressing changes were started. Today she denies fever. Her appetite is ok. Progress of Wound: Stable. No new concerns at this time. Has had 3 applications of epi-fix so far. - Physical Exam Vital Signs Temp Pulse Resp BP 96.8 F L 97 18 133/80 H 12/18/18 09:39 12/18/18 09:39 12/18/18 09:39 12/18/18 09:39 General: Alert, Oriented x3, Cooperative, No apparent distress HEENT: Atraumatic, Normocephalic Oral: Moist Mucosa Neck: Supple Lungs: Normal air movement Abdomen: Non Tender Extremities: No cyanosis Skin: Ulcer/ Wound Wound Measurements and Assessment - Nurse 1 - General Ulcer Measurement Start: 12/04/18 09:56 Freq: Status: Active Protocol: Activity Type Activity Date Activity User E-Sign Co-Sign Detail Recorded Client Recorded Date Recorded By Document 12/18/18 09:39 DL [id number] 12/18/18 09:43 DL 12/18/18 09:39 Wound Center Nurse 1 [Ulcer Assessment] #1 LEFT FOREHEAD -Current Size (cm) - Length 0.8 -Current Size (cm) - Width 0.5 -Current Size (cm) - Depth 0.1 -Total Square Cm 0.40 -Photo Taken No -Exudate Amt None Present -Wound Margin Distinct, Outline Attached -Granulation Amt None Present (0 %) -Necrosis Amt Large (67-100%) -Necrotic Tissue Type Eschar -Structure Exposed N/A -Texture (Elizabeth-wound Skin Appearance) Scarring -Moisture (Elizabeth-wound Skin Appearance No Abnormality ) -Color (Elizabeth-wound Skin Appearance) Rubor -Tenderness on Palpation (Elizabeth-wound No Skin Appearance) -Ulcer Cleansing Rinsed/ Irrigated with Saline -Foul Odor after Cleansing No -Anesthetic Used 4% Lidocaine Solution WC - Nurse 2 - General Ulcer CM Notes Start: 12/04/18 09:56 Freq: Status: Active Protocol: Activity Type Activity Date Activity User E-Sign Co-Sign Detail Recorded Client Recorded Date Recorded By Document 12/18/18 10:18 MW [id number] 12/18/18 10:24 MW 12/18/18 10:18 Wound Center Nurse 2 [Procedure/Treatment] -Time 10:19 -Correct Patient Yes -Correct Side, Site, Position Yes -Correct Procedure Yes -Procedure Performed Yes -Type of Procedure Debridement -Clinical Debridement Subcutaneous -Post Debridement Size (cm) - Length 0.8 -Post Debridement Size (cm) - Width 0.4 -Post Debridement Size (cm) - Depth 0.1 -Total Square Cm 0.32 -Wound/Ulcer Outcome Not Healed -Ulcer Cleansing Rinsed/ Irrigated with Saline -Foul Odor after Cleansing No -Bioengineered Tissue Yes -Type of bioengineered Tissue EPIFIX -Expiration Date 06/01/23 -Product Lot Number [id number] -Percent Used 100 -Saline Lot Number [id number] -Bleeding Controlled with Pressure -Offloading No -Treatment Response Procedure Tolerated Well [See Physician Procedure note for Specifics] Pain Scale: 0-10 Numeric [Pain] -Is Patient Pain Free? Yes Musculoskeletal: No Muscle Wasting Neurological: Cranial nerves II-XII grossly intact Psych/Mental Status: Normal Affect Debridement Note Post-Debridement Measurements/Treatment WC - Nurse 2 - General Ulcer CM Notes Start: 12/04/18 09:56 Freq: Status: Active Protocol: Activity Type Activity Date Activity User E-Sign Co-Sign Detail Recorded Client Recorded Date Recorded By Document 12/04/18 10:23 MW [id number] 12/04/18 10:34 MW Document 12/11/18 11:19 MW [id number] 12/11/18 11:28 MW Document 12/18/18 10:18 MW [id number] 12/18/18 10:24 MW 12/04/18 12/11/18 12/18/18 10:23 11:19 10:18 Wound Center Nurse 2 #1 LEFT FOREHEAD -Time 10:24 11:19 10:19 -Correct Patient Yes Yes Yes -Correct Side, Site, Position Yes Yes Yes -Correct Procedure Yes Yes Yes -Procedure Performed Yes Yes Yes -Type of Procedure Debridement Debridement Debridement -Clinical Debridement Subcutaneous Subcutaneous Subcutaneous -Post Debridement Size (cm) - Length 1.3 1.0 0.8 -Post Debridement Size (cm) - Width 0.6 0.5 0.4 -Post Debridement Size (cm) - Depth 0.2 0.1 0.1 -Total Square Cm 0.78 0.50 0.32 -Wound/Ulcer Outcome Not Healed Not Healed Not Healed -Ulcer Cleansing Rinsed/ Rinsed/ Rinsed/ Irrigated with Irrigated with Irrigated with Saline Saline Saline -Foul Odor after Cleansing No No No -Bioengineered Tissue Yes Yes -Type of bioengineered Tissue EPIFIX EPIFIX EPIFIX -Expiration Date 05/01/23 05/01/23 06/01/23 -Product Lot Number [id number] -Percent Used 100 100 100 -Saline Lot Number [id number] -Bleeding Controlled with Pressure Pressure Pressure -Other undermining @ 12-1 , 0.5cm -Offloading No No No -Treatment Response Procedure Procedure Procedure Tolerated Well Tolerated Well Tolerated Well Pain Scale: 0-10 Numeric Is Patient Pain Free? 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 Nonhealing basal cell carcinoma ulcer left frontal scalp with exposed bone. 2. Diabetes mellitus. 3. Former smoker. Plan: Consistent improvement. No signs of infection at this time. Debridement done as documented above. Procedure was well-tolerated. Continued use of epi- fix remains medically necessary due to significant improvement so far and increase time to healing to reduce the likelyhood of Osteomyelitis due to proximity to bone. Wound has been present for about 2 months and she had tried some traditional wound care products with failure to progress prior to starting aquacel silver here which was also used for some weeks.. Appreciate consult/imput from Dr. Lopez. Fourth application of Epifix done today using 100% of product. Moistened with saline and wound veil over top. Leave in place for 1 week. Continue increased protein intake and optimal blood sugar control. Follow-up in 1 week. Advised to call with any questions or concerns. This note was generated with [employer] software. It may contain incorrect words, spelling, and punctuation that were not noted in checking the note before signing.
[2018-12-25 09:54] VITALS: BP 146/84; PULSE 96; RESP 16; TEMP 36; BMI 30.8
--- NOTE | 2018-12-25 10:46 | PCM.WC.PN ---
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 History of Wound: 72-year-old woman with a history of diabetes mellitus presented to the [facility] last week with a nonhealing basal cell carcinoma ulcer left frontal scalp with exposed bone. She had a lesion on her left frontal scalp that was biopsied on 08/28/18. Pathology showed a basal cell carcinoma, ulcerated nodular with infiltrating features. She then underwent definitive excision of this basal cell carcinoma left frontal scalp using Moh's micrographic surgery on 10/02/18. The wound was allowed to heal with secondary intention. In the meantime, the healing wound extended down to the bone. A wound culture was done at her visit last week 11/06/18. It showed Coag negative Staph and Propionibacterium acnes. She was placed on Doxycycline. Will add Flagyl. Silver dressing changes were started. Today she denies fever. Her appetite is ok. Progress of Wound: Stable. No new concerns at this time. Has had 4 applications of epi-fix so far. - Physical Exam Vital Signs Temp Pulse Resp BP 96.8 F L 96 16 146/84 H 12/25/18 09:54 12/25/18 09:54 12/25/18 09:54 12/25/18 09:54 General: Alert, Oriented x3, Cooperative, No apparent distress HEENT: Atraumatic, Normocephalic Oral: Moist Mucosa Neck: Supple Lungs: Normal air movement Abdomen: Non Tender Extremities: No cyanosis Wound Measurements and Assessment WC - Nurse 1 - General Ulcer Measurement Start: 12/04/18 09:56 Freq: Status: Active Protocol: Activity Type Activity Date Activity User E-Sign Co-Sign Detail Recorded Client Recorded Date Recorded By Document 12/25/18 09:54 [facility] [id number] 12/25/18 09:59 [facility] 12/25/18 09:54 Wound Center Nurse 1 [Ulcer Assessment] #1 LEFT FOREHEAD -Combined with other wound No -Current Size (cm) - Length 0.5 -Current Size (cm) - Width 0.9 -Current Size (cm) - Depth 0.1 -Total Square Cm 0.45 -Photo Taken No -Epithelialization None Present -Tunneling No -Undermining/Tunneling No -Circular Undermining No -Exudate Amt Small -Exudate Type Serous -Wound Margin Distinct, Outline Attached -Granulation Amt None Present (0 %) -Slough/Fibrin Yes -Necrosis Amt Large (67-100%) -Necrotic Tissue Type Adherent Slough -Texture (Elizabeth-wound Skin Appearance) Assessed Scarring -Moisture (Elizabeth-wound Skin Appearance Assessed ) Dry/Scaly -Color (Elizabeth-wound Skin Appearance) Assessed -Temperature (Elizabeth-wound Skin No Abnormality Appearance) (Pt Warm) -Tenderness on Palpation (Elizabeth-wound No Skin Appearance) -Ulcer Cleansing Wound Cleanser -Foul Odor after Cleansing No -Anesthetic Used 5% Lidocaine Gel WC - Nurse 2 - General Ulcer CM Notes Start: 12/04/18 09:56 Freq: Status: Active Protocol: Activity Type Activity Date Activity User E-Sign Co-Sign Detail Recorded Client Recorded Date Recorded By Document 12/25/18 10:31 MW [id number] 12/25/18 10:36 MW 12/25/18 10:31 Wound Center Nurse 2 [Procedure/Treatment] -Time 10:31 -Correct Patient Yes -Correct Side, Site, Position Yes -Correct Procedure Yes -Procedure Performed Yes -Type of Procedure Debridement -Clinical Debridement Subcutaneous -Post Debridement Size (cm) - Length 0.4 -Post Debridement Size (cm) - Width 0.2 -Post Debridement Size (cm) - Depth 0.1 -Total Square Cm 0.08 -Wound/Ulcer Outcome Not Healed -Ulcer Cleansing Rinsed/ Irrigated with Saline -Foul Odor after Cleansing No -Bioengineered Tissue Yes -Type of bioengineered Tissue EPIFIX -Expiration Date 05/01/23 -Product Lot Number [id number] -Percent Used 100 -Saline Lot Number [id number] -Bleeding Controlled with Pressure -Offloading No -Treatment Response Procedure Tolerated Well [See Physician Procedure note for Specifics] Pain Scale: 0-10 Numeric [Pain] -Is Patient Pain Free? Yes Musculoskeletal: No Muscle Wasting Neurological: Cranial nerves II-XII grossly intact Psych/Mental Status: Normal Affect Debridement Note Post-Debridement Measurements/Treatment WC - Nurse 2 - General Ulcer CM Notes Start: 12/04/18 09:56 Freq: Status: Active Protocol: Activity Type Activity Date Activity User E-Sign Co-Sign Detail Recorded Client Recorded Date Recorded By Document 12/04/18 10:23 MW [id number] 12/04/18 10:34 MW Document 12/11/18 11:19 MW [id number] 12/11/18 11:28 MW Document 12/18/18 10:18 MW [id number] 12/18/18 10:24 MW Document 12/25/18 10:31 MW [id number] 12/25/18 10:36 MW 12/04/18 12/11/18 12/18/18 10:23 11:19 10:18 Wound Center Nurse 2 #1 LEFT FOREHEAD -Time 10:24 11:19 10:19 -Correct Patient Yes Yes Yes -Correct Side, Site, Position Yes Yes Yes -Correct Procedure Yes Yes Yes -Procedure Performed Yes Yes Yes -Type of Procedure Debridement Debridement Debridement -Clinical Debridement Subcutaneous Subcutaneous Subcutaneous -Post Debridement Size (cm) - Length 1.3 1.0 0.8 -Post Debridement Size (cm) - Width 0.6 0.5 0.4 -Post Debridement Size (cm) - Depth 0.2 0.1 0.1 -Total Square Cm 0.78 0.50 0.32 -Wound/Ulcer Outcome Not Healed Not Healed Not Healed -Ulcer Cleansing Rinsed/ Rinsed/ Rinsed/ Irrigated with Irrigated with Irrigated with Saline Saline Saline -Foul Odor after Cleansing No No No -Bioengineered Tissue Yes Yes -Type of bioengineered Tissue EPIFIX EPIFIX EPIFIX -Expiration Date 05/01/23 05/01/23 06/01/23 -Product Lot Number [id number] -Percent Used 100 100 100 -Saline Lot Number [id number] -Bleeding Controlled with Pressure Pressure Pressure -Other undermining @ 12-1 , 0.5cm -Offloading No No No -Treatment Response Procedure Procedure Procedure Tolerated Well Tolerated Well Tolerated Well Pain Scale: 0-10 Numeric Is Patient Pain Free? Yes Yes Yes 12/25/18 10:31 Wound Center Nurse 2 #1 LEFT FOREHEAD -Time 10:31 -Correct Patient Yes -Correct Side, Site, Position Yes -Correct Procedure Yes -Procedure Performed Yes -Type of Procedure Debridement -Clinical Debridement Subcutaneous -Post Debridement Size (cm) - Length 0.4 -Post Debridement Size (cm) - Width 0.2 -Post Debridement Size (cm) - Depth 0.1 -Total Square Cm 0.08 -Wound/Ulcer Outcome Not Healed -Ulcer Cleansing Rinsed/ Irrigated with Saline -Foul Odor after Cleansing No -Bioengineered Tissue Yes -Type of bioengineered Tissue EPIFIX -Expiration Date 05/01/23 -Product Lot Number [id number] -Percent Used 100 -Saline Lot Number [id number] -Bleeding Controlled with Pressure -Other -Offloading No -Treatment Response Procedure Tolerated Well Pain Scale: 0-10 Numeric Is Patient Pain Free? 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 Nonhealing basal cell carcinoma ulcer left frontal scalp with exposed bone. 2. Diabetes mellitus. 3. Former smoker. Plan: Consistent improvement. No cerns at this time. Debridement done as documented above. Procedure was well-tolerated. Continued use of epi-fix remains medically necessary due to significant improvement so far and increase time to healing to reduce the likelyhood of Osteomyelitis due to proximity to bone. Wound has been present for over 2 months and she had tried some traditional wound care products with failure to progress prior to starting aquacel silver here which was also used for some weeks.. Appreciate consult/imput from Dr. Lopez. Fifth application of Epifix done today using 100% of product. Moistened with saline and wound veil over top. Leave in place for 2 weeks. Continue increased protein intake and optimal blood sugar control. Follow-up in 2 weeks. Advised to call with any questions or concerns. This note was generated with [employer] dictation software. It may contain incorrect words, spelling, and punctuation that were not noted in checking the note before signing.
== END 2018-12-29 23:59 ==
LOC: WC 10:00
PROVIDERS: Visit Provider Internal Medicine
DX: T81.89XA Other complications of procedures, not elsewhere classified, initial encounter (principal); E11.9 Type 2 diabetes mellitus without complications; C44.309 Unspecified malignant neoplasm of skin of other parts of face; Y83.9 Surgical procedure, unspecified as the cause of abnormal reaction of the patient, or of later complication, without mention of misadventure at the time of the procedure; Z87.891 Personal history of nicotine dependence
CPT/HCPCS: 15271; 15275; Q4186

== ENCOUNTER 2019-01-08 09:52 | Outpatient (RCR) | payer MEDICARE, SELFPAY ==
[2018-12-30 01:11] VITALS: BP 146/84; PULSE 96; RESP 16; TEMP 36
[2019-01-08 09:45] VITALS: BP 134/73; PULSE 94; RESP 16; TEMP 36.4; BMI 30.8
--- NOTE | 2019-01-08 10:03 | PCM.WC.PN ---
(1) Basal cell carcinoma of scalp Status: Chronic Code(s): C44.41 - Basal cell carcinoma of skin of scalp and neck Comment: basal cell carcinoma, ulcerated nodular with infiltrating features left frontal scalp (2) Non-healing surgical wound Status: Chronic Code(s): T81.89XA - Other complications of procedures, not elsewhere classified, initial encounter (3) Type 2 diabetes mellitus Status: Chronic Code(s): E11.9 - Type 2 diabetes mellitus without complications Type of Wound Chief Complaint: Nonhealing basal cell carcinoma ulcer left frontal scalp with exposed bone. History of Wound: 72-year-old woman with a history of diabetes mellitus presented to the Wound Center last week with a nonhealing basal cell carcinoma ulcer left frontal scalp with exposed bone. She had a lesion on her left frontal scalp that was biopsied on 08/28/18. Pathology showed a basal cell carcinoma, ulcerated nodular with infiltrating features. She then underwent definitive excision of this basal cell carcinoma left frontal scalp using Moh's micrographic surgery on 10/02/18. The wound was allowed to heal with secondary intention. In the meantime, the healing wound extended down to the bone. A wound culture was done at her visit last week 11/06/18. It showed Coag negative Staph and Propionibacterium acnes. She was placed on Doxycycline. Will add Flagyl. Silver dressing changes were started. Today she denies fever. Her appetite is ok. Progress of Wound: Healed after 5 applications of Epifiix. - Physical Exam Vital Signs Temp Pulse Resp BP 97.6 F L 94 16 134/73 H 01/08/19 09:45 01/08/19 09:45 01/08/19 09:45 01/08/19 09:45 General: Alert, Oriented x3, Cooperative, No apparent distress HEENT: Atraumatic, Normocephalic Oral: Moist Mucosa Neck: Supple Lungs: Normal air movement Abdomen: Non Tender Extremities: No cyanosis Wound Measurements and Assessment WC - Nurse 1 - General Ulcer Measurement Start: 01/08/19 09:45 Freq: Status: Active Protocol: Activity Type Activity Date Activity User E-Sign Co-Sign Detail Recorded Client Recorded Date Recorded By Document 01/08/19 09:45 BMF [id number] 01/08/19 09:50 BMF 01/08/19 09:45 Wound Center Nurse 1 [Ulcer Assessment] #1 LEFT FOREHEAD -Combined with other wound No -Current Size (cm) - Length 0.1 -Current Size (cm) - Width 0.1 -Current Size (cm) - Depth 0.1 -Total Square Cm 0.01 -Date of Last Picture (Recall this 01/08/19 field) -Photo Taken Yes -Epithelialization Large 67-100% -Tunneling No -Undermining/Tunneling No -Circular Undermining No -Exudate Amt None Present -Texture (Elizabeth-wound Skin Appearance) Assessed Scarring -Moisture (Elizabeth-wound Skin Appearance Assessed ) Dry/Scaly -Color (Elizabeth-wound Skin Appearance) No Abnormality Assessed -Temperature (Elizabeth-wound Skin No Abnormality Appearance) (Pt Warm) -Tenderness on Palpation (Elizabeth-wound No Skin Appearance) -Ulcer Cleansing Rinsed/ Irrigated with Saline -Foul Odor after Cleansing No -Anesthetic Used 5% Lidocaine Gel Musculoskeletal: No Muscle Wasting Neurological: Cranial nerves II-XII grossly intact Psych/Mental Status: Normal Affect Debridement Note No debridement was completed today Assessment/Plan Assessment: 1. Nonhealing basal cell carcinoma ulcer left frontal scalp with exposed bone. 2. Diabetes mellitus. 3. Former smoker. Plan: Healed after 5 applications of Epifix. No new concerns at this time. No Debridement completed today. Adaptic over area x 1 week. She was advised to call with any question or concerns. Discharged from the wound center. This note was generated with [employer] software. It may contain incorrect words, spelling, and punctuation that were not noted in checking the note before signing.
== END 2019-01-28 23:59 ==
LOC: WC 09:52
PROVIDERS: Family Provider Family Medicine; PCP Family Medicine; Visit Provider Internal Medicine
DX: Z09 Encounter for follow-up examination after completed treatment for conditions other than malignant neoplasm (principal); E11.9 Type 2 diabetes mellitus without complications; C44.309 Unspecified malignant neoplasm of skin of other parts of face; Z87.891 Personal history of nicotine dependence
CPT/HCPCS: 99213; G0463